=== PATIENT | female | born 1930 | race Caucasian/White ===

== ENCOUNTER 2018-09-27 18:28 | Inpatient (IN) | payer MEDICARE, BC ==
--- NOTE | 2018-09-27 19:22 | ED ---
General Adult HPI - General Chief complaint: Recheck/Abnormal Lab/Rx Stated complaint: Cellulitis Time Seen by Provider: 09/27/18 18:30 Source: patient, EMS, RN notes reviewed, old records reviewed Mode of arrival: EMS Limitations: no limitations - History of Present Illness Initial comments: 88-year-old female presents from [facility] for evaluation of right lower extremity erythema and swelling. Patient's symptoms have been ongoing for the past several weeks. She was seen at an outside hospital and had arterial study completed. Patient denies any complaints at the time my evaluation, no fever chills, no significant pain. Patient's family requested the patient be transported for second evaluation. - Related Data Home Medications Medication Instructions Recorded Confirmed Acetaminophen Tab [Tylenol] 1,000 mg PO DIRECTED PRN 11/04/16 11/04/16 Ascorbic Acid [Vitamin C] 500 mg PO DAILY 11/04/16 11/04/16 Aspirin EC [Ecotrin Low Dose] 81 mg PO DAILY 11/04/16 11/08/16 Atorvastatin [Lipitor] 40 mg PO DAILY 11/04/16 11/08/16 Dabigatran [Pradaxa] 75 mg PO BID 11/04/16 11/08/16 Digoxin [Lanoxin] 125 mcg PO DAILY 11/04/16 11/08/16 Donepezil HCl [Aricept] 5 mg PO HS 11/04/16 11/08/16 Furosemide [Lasix] 60 mg PO DAILY 11/04/16 11/08/16 Isosorbide Mononitrate ER [Imdur] 30 mg PO DAILY 11/04/16 11/08/16 Levothyroxine Sodium [Synthroid] 50 mcg PO DAILY 11/04/16 11/08/16 Losartan Potassium [Cozaar] 50 mg PO DAILY 11/04/16 11/08/16 Metoprolol Tartrate [Lopressor] 100 mg PO W/SUPPER 11/04/16 11/08/16 Metoprolol Tartrate [Lopressor] 150 mg PO QAM 11/04/16 11/08/16 [place]-3 Fatty Acids/Fish Oil [Fish 1 each PO DAILY 11/04/16 11/04/16 Oil 1,000 mg Softgel] Previous Rx's Medication Instructions Recorded Nitroglycerin Sl Tabs [Nitrostat] 0.4 mg SUBLINGUAL Q5M PRN #25 tab 11/09/16 metFORMIN HCL [Glucophage] 500 mg PO AC-SUPPER #0 11/09/16 Allergies Allergy/AdvReac Type Severity Reaction Status Date / Time Sulfa (Sulfonamide Allergy Unknown Unknown Verified 11/04/16 15:02 Antibiotics) Review of Systems ROS Statement: Those systems with pertinent positive or pertinent negative responses have been documented in the HPI. ROS Other: All systems not noted in ROS Statement are negative. Past Medical History Past Medical History: Diabetes Mellitus, Hyperlipidemia, Hypertension, Memory Impairment, Osteoarthritis (OA), Thyroid Disorder Additional Past Medical History / Comment(s): NEUROPATHY LEGS AND FEET, STATES SWELLING IN LEGS AND ANKLES WITH OCCASIONAL BLISTERS THAT SHE SCRATCHES AND THEY DRAIN., BACK AND KATHI SHOULDER PAIN. , INCONTINENT OF URINE-WEARS PADS., USES WALKER., STATES SHE LOST 150 LBS OVER THE LAST YEAR-WITHOUT ANY REASON STATES USUALLY NO APPETITE. SEE CARDIOLOGY H & P. History of Any Multi-Drug Resistant Organisms: None Reported Past Surgical History: Cholecystectomy, Coronary Bypass/CABG Additional Past Surgical History / Comment(s): sx to repair a torn tendon rt hip , lithotripsy,colonoscopy, cortisone inj rt shoulder Past Anesthesia/Blood Transfusion Reactions: No Reported Reaction Additional Past Anesthesia/Blood Transfusion Reaction / Comment(s): PT IS ADOPTED-UNKNOWN FAMILY HX. Type of Cardiac Device: Permanent Pacemaker Device Placement Date:: unk Past Psychological History: No Psychological Hx Reported Smoking Status: Former smoker Past Alcohol Use History: None Reported Past Drug Use History: None Reported - Past Family History Mother Family Medical History: Unable to Obtain Additional Family Medical History / Comment(s): PT ADOPTED. General Exam Limitations: no limitations General appearance: alert Head exam: Present: atraumatic, normocephalic Eye exam: Present: normal appearance, PERRL ENT exam: Present: normal exam Neck exam: Present: normal inspection. Absent: tenderness, meningismus Respiratory exam: Present: normal lung sounds bilaterally. Absent: respiratory distress, wheezes Cardiovascular Exam: Present: regular rate, normal rhythm GI/Abdominal exam: Present: soft. Absent: distended, tenderness Extremities exam: Present: normal capillary refill, pedal edema, other ( Swelling and erythema in the lower extremity, ankle to knee on the right. There is no crepitus, no fluctuance or drainable abscess. Distal signals present bilaterally) Neurological exam: Present: alert, CN II-XII intact. Absent: motor sensory deficit Skin exam: Present: warm, dry. Absent: cyanosis, diaphoretic Course Vital Signs 09/27/18 09/27/18 09/27/18 18:49 20:03 21:00 Temperature 98.9 F Pulse Rate 52 L 50 L 50 L Respiratory 18 17 18 Rate Blood Pressure 150/73 163/89 166/58 O2 Sat by Pulse 97 97 96 Oximetry Medical Decision Making - Medical Decision Making 88-year-old female with right lower extremity swelling. Exam consistent with cellulitis. X-ray obtained, negative for soft tissue gas. Ultrasound obtained negative for DVT. Arterial ultrasound reviewed, no abnormality. Patient started on IV anabiotic's. She was on oral antibiotics and has failed to improve. She will be admitted for further treatment of right lower extremity cellulitis. - Lab Data Result diagrams: 09/27/18 19:22 09/27/18 19:22 Lab Results 09/27/18 09/27/18 09/27/18 Range/Units 19:22 19:22 19:22 WBC 4.1 (3.8-10.6) k/uL RBC 3.47 L (3.80-5.40) m/uL Hgb 10.4 L (11.4-16.0) gm/dL Hct 32.4 L (34.0-46.0) % MCV 93.5 (80.0-100.0) fL MCH 30.1 (25.0-35.0) pg MCHC 32.1 (31.0-37.0) g/dL RDW 14.5 (11.5-15.5) % Plt Count 108 L (150-450) k/uL Neutrophils % 68 % Lymphocytes % 16 % Monocytes % 9 % Eosinophils % 3 % Basophils % 1 % Neutrophils # 2.8 (1.3-7.7) k/uL Lymphocytes # 0.7 L (1.0-4.8) k/uL Monocytes # 0.4 (0-1.0) k/uL Eosinophils # 0.1 (0-0.7) k/uL Basophils # 0.0 (0-0.2) k/uL Sodium 143 (137-145) mmol/L Potassium 5.0 (3.5-5.1) mmol/L Chloride 106 (98-107) mmol/L Carbon Dioxide 31 H (22-30) mmol/L Anion Gap 6 mmol/L BUN 49 H (7-17) mg/dL Creatinine 1.67 H (0.52-1.04) mg/dL Est GFR (CKD-EPI)AfAm 32 (>60 ml/min/1.73 sqM) Est GFR (CKD-EPI)NonAf 27 (>60 ml/min/1.73 sqM) Glucose 90 (74-99) mg/dL Plasma Lactic Acid Eugenio 1.0 (0.7-2.0) mmol/L Calcium 9.0 (8.4-10.2) mg/dL Total Bilirubin 0.5 (0.2-1.3) mg/dL AST 32 (14-36) U/L ALT 26 (9-52) U/L Alkaline Phosphatase 104 (38-126) U/L Total Protein 6.6 (6.3-8.2) g/dL Albumin 3.4 L (3.5-5.0) g/dL Disposition Clinical Impression: Cellulitis Disposition: ADMITTED IP TO THIS [facility] Condition: Stable Is patient prescribed a controlled substance at d/c from ED?: No Referrals: Nonstaff,Physician [Primary Care Provider] - 1-2 days Decision to Admit Reason: Admit from [facility] Decision Date: 09/27/18 Decision Time: 21:28
[2018-09-27 19:56] LABS: Basophils % (A) 1 %; Eosinophils # (A) 0.1 k/uL (0-0.7); Eosinophils % (A) 3 %; HCT 32.4 % (34.0-46.0); HGB 10.4 gm/dL (11.4-16.0); Lymphocytes # (A) 0.7 k/uL (1.0-4.8); Lymphocytes % (A) 16 %; MCH 30.1 pg (25.0-35.0); MCHC 32.1 g/dL (31.0-37.0); MCV 93.5 fL (80.0-100.0); Mean Platelet Volume 7.4; Monocytes # (A) 0.4 k/uL (0-1.0); Monocytes % (A) 9 %; Neutrophils # (A) 2.8 k/uL (1.3-7.7); Neutrophils % (A) 68 %; Platelet Count 108 k/uL (150-450); RBC 3.47 m/uL (3.80-5.40); RDW 14.5 % (11.5-15.5); WBC 4.1 k/uL (3.8-10.6)
[2018-09-27 20:04] LABS: Albumin 3.4 g/dL (3.5-5.0); Total Bilirubin 0.5 mg/dL (0.2-1.3); Total Protein 6.6 g/dL (6.3-8.2)
--- NOTE | 2018-09-27 20:14 | XR ---
EXAMINATION TYPE: XR tibia fibula RT DATE OF EXAM: 09/27/2018 COMPARISON: NONE HISTORY: Leg pain and swelling TECHNIQUE: 4 views FINDINGS: There are multiple surgical clips on the medial aspect of the knee. There is osteopenia. Th ere is vascular calcification. I see no acute fracture nor dislocation. There is hypertrophic osteoar thritis at the knee joint. There is severe narrowing of ankle joint space. There is soft tissue swell ing around the ankle joint. There is a large plantar and Achilles calcaneal spur formation. IMPRESSION: No acute abnormality of the right tibia and fibula.
--- NOTE | 2018-09-27 20:16 | US ---
EXAMINATION TYPE: US venous doppler duplex LE DATE OF EXAM: 09/27/2018 8:07 PM COMPARISON: NONE CLINICAL HISTORY: Pain. Edema SIDE PERFORMED: Bilateral TECHNIQUE: The lower extremity deep venous system is examined utilizing real time linear array sonog ambar with graded compression, doppler sonography and color-flow sonography. VESSELS IMAGED: External Iliac Vein (EIV) Common Femoral Vein Deep Femoral Vein Greater Saphenous Vein * Femoral Vein Popliteal Vein Small Saphenous Vein * Proximal Calf Veins (* superficial vessels) Right Leg: Negative for DVT Left Leg: Negative for DVT No evidence of DVT bilateral legs. IMPRESSION: No evidence of deep venous thrombosis in both legs.
[2018-09-27] MEDS ORDERED: VANCOMYCIN IV PER PHARMACY 1 EACH MISC MISCELLANE PRN (20:33)
[2018-09-27] MEDS ORDERED: VANCOMYCIN 1,250 MG in SODIUM CHLORIDE 0.9% 250 ML IVPB STA (20:38)
[2018-09-27] MEDS ORDERED: NALOXONE 0.4 MG/ML 1 ML VIAL IV PRN (21:25)
[2018-09-27] MEDS ORDERED: ACETAMINOPHEN TAB 325 MG TAB PO PRN (21:25)
[2018-09-27 23:19] VITALS: BMI 22.0
[2018-09-28 09:03] LABS: Calcium 8.8 mg/dL (8.4-10.2); Potassium 4.2 mmol/L (3.5-5.1)
[2018-09-28] MEDS ORDERED: VANCOMYCIN 1,250 MG in SODIUM CHLORIDE 0.9% 250 ML IVPB ONE (12:00)
[2018-09-28] MEDS ORDERED: NITROGLYCERIN SL TABS 0.4 MG TAB SUBLINGUAL PRN (13:06)
--- NOTE | 2018-09-28 13:59 | P.HPIM ---
History of Present Illness H&P Date: 09/28/18 Chief Complaint: Cellulitis and abnormal labs 88-year-old female presents [facility] for evaluation of right lower extremity erythema and swelling. Patient has dementia and is unable to provide any history so most of the history is obtained from patient records; Patient's symptoms have been ongoing for the past several weeks. She was seen at an outside hospital and had arterial study completed. Patient denies any complaints at the time my evaluation, no fever chills, no significant pain. Patient's family requested the patient be transported for second evaluation. Review of Systems ROS unobtainable: due to mental status Past Medical History Past Medical History: Diabetes Mellitus, Hyperlipidemia, Hypertension, Memory Impairment, Osteoarthritis (OA), Thyroid Disorder Additional Past Medical History / Comment(s): NEUROPATHY LEGS AND FEET, STATES SWELLING IN LEGS AND ANKLES WITH OCCASIONAL BLISTERS THAT SHE SCRATCHES AND THEY DRAIN., BACK AND KATHI SHOULDER PAIN. , INCONTINENT OF URINE-WEARS PADS., USES WALKER., STATES SHE LOST 150 LBS OVER THE LAST YEAR-WITHOUT ANY REASON STATES USUALLY NO APPETITE. SEE CARDIOLOGY H & P. History of Any Multi-Drug Resistant Organisms: None Reported Past Surgical History: Cholecystectomy, Coronary Bypass/CABG Additional Past Surgical History / Comment(s): sx to repair a torn tendon rt hip , lithotripsy,colonoscopy, cortisone inj rt shoulder Past Anesthesia/Blood Transfusion Reactions: No Reported Reaction Additional Past Anesthesia/Blood Transfusion Reaction / Comment(s): PT IS ADOPTED-UNKNOWN FAMILY HX. Type of Cardiac Device: Permanent Pacemaker Device Placement Date:: unk Past Psychological History: No Psychological Hx Reported Smoking Status: Former smoker Past Alcohol Use History: None Reported Additional Past Alcohol Use History / Comment(s): STATES SHE STARTED SMOKING AT 19 YRS OLD. UNSURE WHEN SHE QUIT -BUT STATES IT WAS A LONG TIME AGO. Past Drug Use History: None Reported - Past Family History Mother Family Medical History: Unable to Obtain Additional Family Medical History / Comment(s): PT ADOPTED. Medications and Allergies Home Medications Medication Instructions Recorded Confirmed Type Atorvastatin [Lipitor] 40 mg PO DAILY 11/04/16 09/28/18 History Digoxin [Lanoxin] 125 mcg PO DAILY 11/04/16 09/28/18 History Nitroglycerin Sl Tabs [Nitrostat] 0.4 mg SUBLINGUAL Q5M PRN #25 tab 11/09/1601/14 Rx metFORMIN HCL [Glucophage] 500 mg PO AC-SUPPER #0 11/09/16 09/28/18 Rx Allopurinol [Zyloprim] 100 mg PO DAILY 09/28/18 09/28/18 History Amiodarone [Cordarone] 100 mg PO BID 09/28/18 09/28/18 History Apixaban [Eliquis] 2.5 mg PO BID 09/28/18 09/28/18 History Cephalexin [Keflex] 500 mg PO Q12HR 09/28/18 09/28/18 History Ferrous Sulfate [Iron (65 MG 325 mg PO DAILY 09/28/18 09/28/18 History Elemental)] Furosemide [Lasix] 40 mg PO BID 09/28/18 09/28/18 History Metoprolol Tartrate [Lopressor] 25 mg PO Q12H 09/28/18 09/28/18 History Potassium Chloride ER [K-Dur 20] 20 meq PO BID 09/28/18 09/28/18 History Allergies Allergy/AdvReac Type Severity Reaction Status Date / Time Sulfa (Sulfonamide Allergy Unknown Unknown Verified 09/28/18 11:49 Antibiotics) Physical Exam Vitals: Vital Signs Temp Pulse Pulse Pulse Resp BP BP 09/28/18 12:16 98.0 F 54 L 16 129/50 09/28/18 11:46 97.1 F L 66 18 115/56 09/28/18 08:00 51 L 53 L 18 09/28/18 06:06 98 F 53 L 16 129/58 09/28/18 05:00 98.4 F 51 L 16 128/57 09/27/18 22:04 97.6 F 53 L 17 136/53 09/27/18 22:01 97.8 F 50 L 17 168/58 09/27/18 21:00 50 L 18 166/58 09/27/18 20:03 50 L 17 163/89 09/27/18 18:49 98.9 F 52 L 18 150/73 Pulse Ox 09/28/18 12:16 96 09/28/18 11:46 98 09/28/18 08:00 09/28/18 06:06 96 09/28/18 05:00 96 09/27/18 22:04 98 09/27/18 22:01 97 09/27/18 21:00 96 09/27/18 20:03 97 09/27/18 18:49 97 Intake and Output 09/27/18 09/28/18 09/28/18 22:59 06:59 14:59 Other: Voiding Method Diaper Toilet Incontinent # Voids 2 1 Weight 62 kg - Constitutional General appearance: Present: average body habitus, cooperative, no acute distress - EENT Eyes: Present: anicteric sclerae, EOMI, PERRLA, normal appearance ENT: Present: hearing grossly normal, normal oropharynx Ears: bilateral: normal - Neck Neck: Present: normal ROM. Absent: lymphadenopathy, rigidity, thyromegaly Carotids: negative: bruit present Thyroid: bilateral: normal size, negative: enlarged, nodule - Respiratory Respiratory: bilateral: CTA, negative: rales, rhonchi, wheezing - Cardiovascular Rhythm: regular Heart sounds: normal: S1, S2 Abnormal Heart Sounds: Absent: systolic murmur, diastolic murmur - Gastrointestinal General gastrointestinal: Present: normal bowel sounds, soft. Absent: distended , organomegaly, tenderness - Genitourinary Genitourinary Comment(s): deferred - Integumentary Integumentary: Present: normal turgor. Absent: jaundiced, rash, ulcer - Neurologic Neurologic: Present: CNII-XII intact. Absent: focal deficits - Musculoskeletal Musculoskeletal: Present: gait normal, strength equal bilaterally - Psychiatric Psychiatric: Present: A&O x's 3, appropriate affect, intact judgment & insight Results CBC & Chem 7: 09/27/18 19:22 09/28/18 08:26 Labs: Abnormal Lab Results - Last 24 Hours (Table) 09/27/18 09/27/18 09/28/18 Range/Units 19:22 19:22 08:26 RBC 3.47 L (3.80-5.40) m/uL Hgb 10.4 L (11.4-16.0) gm/dL Hct 32.4 L (34.0-46.0) % Plt Count 108 L (150-450) k/uL Lymphocytes # 0.7 L (1.0-4.8) k/uL Chloride 108 H (98-107) mmol/L Carbon Dioxide 31 H (22-30) mmol/L BUN 49 H 42 H (7-17) mg/dL Creatinine 1.67 H 1.52 H (0.52-1.04) mg/dL Glucose 131 H (74-99) mg/dL Albumin 3.4 L (3.5-5.0) g/dL Thrombosis Risk Factor Assmnt - Choose All That Apply Any of the Below Risk Factors Present?: Yes Each Factor Represents 1 point: Swollen legs (current) Other Risk Factors: Yes Each Risk Factor Represents 3 Points: Age 75 years or older Other congenital or acquired thrombophilia - If yes, enter type in comment: No Thrombosis Risk Factor Assessment Total Risk Factor Score: 4 Thrombosis Risk Factor Assessment Level: Moderate Risk Assessment and Plan Assessment: 1. Cellulitis right lower extremity; failing outpatient treatment - Patient is started on oral Keflex for outpatient treatment of cellulitis without any improvement - We will plan to start patient on IV ceftriaxone and IV vancomycin with pharmacy dosing service - We will obtain blood cultures and adjust medications and antibiotics accordingly - Venous Doppler right lower extremity is negative for DVT 2. Acute renal injury/dehydration - Patient's creatinine was 1.67 upon admission and has improved to 1.52; patient has a baseline creatinine of 1.14 - We will start patient on slow IV fluid hydration with half-normal saline running at 75 mL an hour - We will monitor strict MONSTER's, daily weights, renal function and electrolytes - We will avoid nephrotoxins and hypotension 3. Anemia; chronic - Patient is a baseline hemoglobin of 10.9; hemoglobin remained stable at baseline - We will continue with iron sulfate 325 mg daily - We will continue to monitor CBC closely and transfuse if hemoglobin is less than 7 4. Uncontrolled hypertension - We will restart patient on home medications metoprolol 25 mg every 12 hours - We will monitor blood pressure closely and adjust medications if needed 5. Diabetes mellitus; by history - We will monitor Accu-Cheks every before meals and at bedtime with insulin sliding scale if needed 7. Hyperlipidemia; stable on home dose of atorvastatin 40 mg daily at bedtime 8. Hypothyroidism; we'll restart patient on home dose of Synthroid 50 MCG daily 9. Chronic atrial fibrillation - Rate controlled on amiodarone 100 mg twice a day along with metoprolol 25 mg every 12 hours - Continue with anticoagulation with Eliquis 2.5 mg twice a day 10. DVT prophylaxis; systemic anticoagulation with Eliquis CODE STATUS ; full code Time with Patient: Greater than 30
[2018-09-28] MEDS: SODIUM CHLORIDE 0.45% 1,000 ML IV SCH (16:46)
[2018-09-28] MEDS: METOPROLOL TARTRATE 25 MG TAB PO SCH (16:46)
[2018-09-28 16:47] LABS: Glucose,Whole Blood 125 mg/dL (75-99)
[2018-09-28] MEDS: INSULIN ASPART 100 UNIT/ML 1 ML 10 ML VIAL SQ SCH ×2 (16:47→21:22)
[2018-09-28 21:01] LABS: Glucose,Whole Blood 157 mg/dL (75-99)
[2018-09-28] MEDS: AMIODARONE 100 MG TAB PO SCH (21:22)
[2018-09-28] MEDS: APIXABAN 2.5 MG TABLET PO SCH (21:22)
[2018-09-28 22:47] LABS: Hemoglobin A1C 5.7 % (4.0-6.0)
[2018-09-29] MEDS: METOPROLOL TARTRATE 25 MG TAB PO SCH ×2 (01:10→15:44)
[2018-09-29] MEDS: LEVOTHYROXINE 50 MCG TAB PO SCH (06:14)
[2018-09-29 06:47] LABS: Glucose,Whole Blood 84 mg/dL (75-99)
[2018-09-29] MEDS: SODIUM CHLORIDE 0.45% 1,000 ML IV SCH (07:27)
[2018-09-29 07:28] LABS: Calcium 8.7 mg/dL (8.4-10.2); Potassium 4.4 mmol/L (3.5-5.1)
[2018-09-29] MEDS: ALLOPURINOL 100 MG TAB PO SCH (07:29)
[2018-09-29] MEDS: ATORVASTATIN 40 MG TAB PO SCH (07:29)
[2018-09-29] MEDS: AMIODARONE 100 MG TAB PO SCH ×2 (07:29→21:48)
[2018-09-29] MEDS: APIXABAN 2.5 MG TABLET PO SCH ×2 (07:29→21:48)
[2018-09-29] MEDS: FERROUS SULFATE 325 MG TAB PO SCH (07:30)
[2018-09-29] MEDS: INSULIN ASPART 100 UNIT/ML 1 ML 10 ML VIAL SQ SCH ×4 (07:30→21:48)
[2018-09-29 07:33] LABS: Vancomycin,Random 13.9 ug/mL
[2018-09-29 07:51] LABS: Basophils % (A) 0 %; Eosinophils # (A) 0.1 k/uL (0-0.7); Eosinophils % (A) 3 %; HCT 28.5 % (34.0-46.0); HGB 9.2 gm/dL (11.4-16.0); Lymphocytes # (A) 0.9 k/uL (1.0-4.8); Lymphocytes % (A) 22 %; MCH 29.9 pg (25.0-35.0); MCHC 32.2 g/dL (31.0-37.0); MCV 92.9 fL (80.0-100.0); Mean Platelet Volume 7.9; Monocytes # (A) 0.3 k/uL (0-1.0); Monocytes % (A) 8 %; Neutrophils # (A) 2.7 k/uL (1.3-7.7); Neutrophils % (A) 65 %; RBC 3.06 m/uL (3.80-5.40); RDW 14.3 % (11.5-15.5); WBC 4.1 k/uL (3.8-10.6)
[2018-09-29 08:35] LABS: Platelet Count 84 k/uL (150-450)
[2018-09-29 11:22] LABS: Glucose,Whole Blood 149 mg/dL (75-99)
[2018-09-29] MEDS ORDERED: VANCOMYCIN 1,250 MG in SODIUM CHLORIDE 0.9% 250 ML IVPB ONE (12:00)
--- NOTE | 2018-09-29 15:25 | P.PN ---
Subjective Progress Note Date: 09/29/18 Principal diagnosis: Cellulitis failing outpatient treatment 09/29/2018 Patient is seen and evaluated for follow up on cellulitis; remains on IV antibiotics and is awake and alert; resting comfortably in bed; vital signs remained stable with a temperature of 97.8; blood pressure continues to fluctuate and is 174/70 at this time; labs are reviewed and white blood count and electrolytes remained stable; patient remains on IV antibiotics Objective - Vital Signs Vital signs: Vital Signs Temp 97.8 F 09/29/18 13:00 Pulse 56 L 09/29/18 13:00 Resp 18 09/29/18 13:00 BP 174/70 09/29/18 13:00 Pulse Ox 95 09/29/18 13:00 Intake & Output 09/28/18 09/29/18 09/29/18 18:59 06:59 18:59 Intake Total 1050 550 Balance 1050 550 Weight 62 kg Intake: Intake, IV Titration 850 190 Amount Sodium Chloride 0.45% 1, 600 90 000 ml @ 75 mls/hr IV . [id number] [facility] Rx#:[id number] Vancomycin 1,250 mg In 250 Sodium Chloride 0.9% 250 ml @ 125 mls/hr IVPB ONCE ONE Rx#:[id number] cefTRIAXone 1,000 mg In 100 Sodium Chloride 0.9% 50 ml @ 100 mls/hr IVPB HS [facility] Rx#:[id number] Oral 200 360 Other: Voiding Method Toilet Toilet Toilet # Voids 1 3 3 - Exam - Constitutional General appearance: Present: average body habitus, cooperative, no acute distress - EENT Eyes: Present: anicteric sclerae, EOMI, PERRLA, normal appearance - Neck Neck: Present: normal ROM. Absent: lymphadenopathy, rigidity, thyromegaly Carotids: negative: bruit present Thyroid: bilateral: normal size, negative: enlarged, nodule - Respiratory Respiratory: bilateral: CTA, negative: rales, rhonchi, wheezing - Cardiovascular Rhythm: regular Heart sounds: normal: S1, S2 Abnormal Heart Sounds: Absent: systolic murmur, diastolic murmur - Gastrointestinal General gastrointestinal: Present: normal bowel sounds, soft. Absent: distended , organomegaly, tenderness - Integumentary Integumentary: Present: normal turgor. Absent: jaundiced, rash, ulcer - Neurologic Neurologic: Present: CNII-XII intact. Absent: focal deficits - Musculoskeletal Musculoskeletal: Present: gait normal, strength equal bilaterally - Labs CBC & Chem 7: 09/29/18 06:41 09/29/18 06:41 Labs: Abnormal Lab Results - Last 24 Hours (Table) 09/28/18 09/28/18 09/29/18 Range/Units 16:46 21:00 06:41 RBC (3.80-5.40) m/uL Hgb (11.4-16.0) gm/dL Hct (34.0-46.0) % Plt Count (150-450) k/uL Lymphocytes # (1.0-4.8) k/uL BUN 38 H (7-17) mg/dL Creatinine 1.45 H (0.52-1.04) mg/dL POC Glucose (mg/dL) 125 H 157 H (75-99) mg/dL 09/29/18 09/29/18 Range/Units 06:41 11:20 RBC 3.06 L (3.80-5.40) m/uL Hgb 9.2 L (11.4-16.0) gm/dL Hct 28.5 L (34.0-46.0) % Plt Count 84 L (150-450) k/uL Lymphocytes # 0.9 L (1.0-4.8) k/uL BUN (7-17) mg/dL Creatinine (0.52-1.04) mg/dL POC Glucose (mg/dL) 149 H (75-99) mg/dL Microbiology - Last 24 Hours (Table) 09/27/18 19:22 Blood Culture - Preliminary Blood No Growth after 24 hours Assessment and Plan Assessment: 1. Cellulitis right lower extremity; failing outpatient treatment - Patient is started on oral Keflex for outpatient treatment of cellulitis without any improvement - We will plan to start patient on IV ceftriaxone and IV vancomycin with pharmacy dosing service - We will obtain blood cultures and adjust medications and antibiotics accordingly - Venous Doppler right lower extremity is negative for DVT 2. Acute renal injury/dehydration - Patient's creatinine was 1.67 upon admission and has improved to 1.52; patient has a baseline creatinine of 1.14 - We will start patient on slow IV fluid hydration with half-normal saline running at 75 mL an hour - We will monitor strict MONSTER's, daily weights, renal function and electrolytes - We will avoid nephrotoxins and hypotension 3. Anemia; chronic - Patient is a baseline hemoglobin of 10.9; hemoglobin remained stable at baseline - We will continue with iron sulfate 325 mg daily - We will continue to monitor CBC closely and transfuse if hemoglobin is less than 7 4. Uncontrolled hypertension - We will restart patient on home medications metoprolol 25 mg every 12 hours - We will monitor blood pressure closely and adjust medications if needed 5. Diabetes mellitus; by history - We will monitor Accu-Cheks every before meals and at bedtime with insulin sliding scale if needed 7. Hyperlipidemia; stable on home dose of atorvastatin 40 mg daily at bedtime 8. Hypothyroidism; we'll restart patient on home dose of Synthroid 50 MCG daily 9. Chronic atrial fibrillation - Rate controlled on amiodarone 100 mg twice a day along with metoprolol 25 mg every 12 hours - Continue with anticoagulation with Eliquis 2.5 mg twice a day 10. DVT prophylaxis; systemic anticoagulation with Eliquis CODE STATUS ; full code Time with Patient: Greater than 30
[2018-09-29] MEDS ORDERED: LIDOCAINE 1% (PF) 10MG/ML VIAL MISCELLANE PRN (17:00)
[2018-09-29 17:39] LABS: Glucose,Whole Blood 146 mg/dL (75-99)
[2018-09-29] MEDS ORDERED: cefTRIAXone 1,000 MG VIAL (IM USE) IM SCH (18:00)
[2018-09-29] MEDS: cefTRIAXone 1,000 MG VIAL (IM USE) IM SCH (18:14)
[2018-09-29 21:16] LABS: Glucose,Whole Blood 152 mg/dL (75-99)
[2018-09-30] MEDS: METOPROLOL TARTRATE 25 MG TAB PO SCH ×3 (00:16→20:48)
[2018-09-30 04:46] VITALS: RESP 16
[2018-09-30] MEDS: LEVOTHYROXINE 50 MCG TAB PO SCH (05:59)
[2018-09-30 06:57] LABS: Glucose,Whole Blood 94 mg/dL (75-99)
[2018-09-30] MEDS: INSULIN ASPART 100 UNIT/ML 1 ML 10 ML VIAL SQ SCH ×4 (07:12→20:36)
[2018-09-30] MEDS: ATORVASTATIN 40 MG TAB PO SCH (07:12)
[2018-09-30] MEDS: AMIODARONE 100 MG TAB PO SCH ×2 (07:12→20:48)
[2018-09-30] MEDS: ALLOPURINOL 100 MG TAB PO SCH (07:13)
[2018-09-30] MEDS: FERROUS SULFATE 325 MG TAB PO SCH (07:13)
[2018-09-30] MEDS: APIXABAN 2.5 MG TABLET PO SCH ×2 (07:13→20:48)
[2018-09-30 07:48] LABS: Basophils % (A) 0 %; Eosinophils # (A) 0.1 k/uL (0-0.7); Eosinophils % (A) 3 %; HCT 27.6 % (34.0-46.0); Hypochromasia Slight; Lymphocytes # (A) 0.8 k/uL (1.0-4.8); Lymphocytes % (A) 19 %; MCHC 32.8 g/dL (31.0-37.0); MCV 94.6 fL (80.0-100.0); Mean Platelet Volume 7.9; Monocytes # (A) 0.4 k/uL (0-1.0); Monocytes % (A) 9 %; Neutrophils # (A) 2.8 k/uL (1.3-7.7); Neutrophils % (A) 67 %; RBC 2.92 m/uL (3.80-5.40); RDW 14.6 % (11.5-15.5); WBC 4.2 k/uL (3.8-10.6)
[2018-09-30 07:59] LABS: Platelet Count 84 k/uL (150-450)
[2018-09-30 08:02] LABS: Calcium 8.5 mg/dL (8.4-10.2); Potassium 4.2 mmol/L (3.5-5.1)
[2018-09-30 11:23] LABS: Glucose,Whole Blood 86 mg/dL (75-99)
--- NOTE | 2018-09-30 14:37 | P.PN ---
Subjective Progress Note Date: 09/30/18 Principal diagnosis: Cellulitis failing outpatient treatment 09/29/2018 Patient is seen and evaluated for follow up on cellulitis; remains on IV antibiotics and is awake and alert; resting comfortably in bed; vital signs remained stable with a temperature of 97.8; blood pressure continues to fluctuate and is 174/70 at this time; labs are reviewed and white blood count and electrolytes remained stable; patient remains on IV antibiotics 09/30/2018 Patient is seen in follow-up at bedside; IV access was lost yesterday and patient's antibiotics were switched to IM Rocephin; patient seems to be tolerating it well; patient does shows slow clinical improvement in cellulitis; I will continue with daily IM Rocephin and add oral Levaquin 500 mg daily; patient's labs are reviewed and white blood count is stable at 4.2; hemoglobin remains stable between 9-9.2; that is slow improvement in renal function with the urine down to 32 with a creatinine of 1.28 We plan to follow patient clinically and possibly discharge within next 24-48 hours if continues to show clinical improvement; patient will need a PICC or central line if shows clinical deterioration with IM Rocephin Objective - Vital Signs Vital signs: Vital Signs Temp 97.6 F 09/30/18 13:00 Pulse 50 L 09/30/18 13:00 Resp 16 09/30/18 13:00 BP 142/63 09/30/18 13:00 Pulse Ox 98 09/30/18 13:00 Intake & Output 09/29/18 09/30/18 09/30/18 19:59 06:59 18:59 Intake Total 850 Balance 850 Weight Intake: Intake, IV Titration Amount Sodium Chloride 0.45% 1, 000 ml @ 75 mls/hr IV . [id number] [facility] Rx#:[id number] cefTRIAXone 1,000 mg In Sodium Chloride 0.9% 50 ml @ 100 mls/hr IVPB HS SAM Rx#:[id number] Oral 850 Other: Voiding Method # Voids 3 - Exam - Constitutional General appearance: Present: average body habitus, cooperative, no acute distress - EENT Eyes: Present: anicteric sclerae, EOMI, PERRLA, normal appearance - Neck Neck: Present: normal ROM. Absent: lymphadenopathy, rigidity, thyromegaly Carotids: negative: bruit present Thyroid: bilateral: normal size, negative: enlarged, nodule - Respiratory Respiratory: bilateral: CTA, negative: rales, rhonchi, wheezing - Cardiovascular Rhythm: regular Heart sounds: normal: S1, S2 Abnormal Heart Sounds: Absent: systolic murmur, diastolic murmur - Gastrointestinal General gastrointestinal: Present: normal bowel sounds, soft. Absent: distended , organomegaly, tenderness - Integumentary Integumentary: Present: normal turgor. Absent: jaundiced, rash, ulcer - Neurologic Neurologic: Present: CNII-XII intact. Absent: focal deficits - Musculoskeletal Musculoskeletal: Present: gait normal, strength equal bilaterally - Labs CBC & Chem 7: 09/30/18 06:21 09/30/18 06:21 Labs: Abnormal Lab Results - Last 24 Hours (Table) 09/29/18 09/29/18 09/30/18 Range/Units 17:37 21:15 06:21 RBC 2.92 L (3.80-5.40) m/uL Hgb 9.0 L (11.4-16.0) gm/dL Hct 27.6 L (34.0-46.0) % Plt Count 84 L (150-450) k/uL Lymphocytes # 0.8 L (1.0-4.8) k/uL Chloride (98-107) mmol/L BUN (7-17) mg/dL Creatinine (0.52-1.04) mg/dL POC Glucose (mg/dL) 146 H 152 H (75-99) mg/dL 09/30/18 Range/Units 06:21 RBC (3.80-5.40) m/uL Hgb (11.4-16.0) gm/dL Hct (34.0-46.0) % Plt Count (150-450) k/uL Lymphocytes # (1.0-4.8) k/uL Chloride 109 H (98-107) mmol/L BUN 32 H (7-17) mg/dL Creatinine 1.28 H (0.52-1.04) mg/dL POC Glucose (mg/dL) (75-99) mg/dL Microbiology - Last 24 Hours (Table) 09/27/18 19:22 Blood Culture Gram Stain - Preliminary Blood 09/27/18 19:22 Blood Culture - Final Blood Assessment and Plan Assessment: 1. Cellulitis right lower extremity; failing outpatient treatment - Patient is started on oral Keflex for outpatient treatment of cellulitis without any improvement - We will plan to start patient on IV ceftriaxone and IV vancomycin with pharmacy dosing service - We will obtain blood cultures and adjust medications and antibiotics accordingly - Venous Doppler right lower extremity is negative for DVT 2. Acute renal injury/dehydration - Patient's creatinine was 1.67 upon admission and has improved to 1.52; patient has a baseline creatinine of 1.14 - We will start patient on slow IV fluid hydration with half-normal saline running at 75 mL an hour - We will monitor strict MONSTER's, daily weights, renal function and electrolytes - We will avoid nephrotoxins and hypotension 3. Anemia; chronic - Patient is a baseline hemoglobin of 10.9; hemoglobin remained stable at baseline - We will continue with iron sulfate 325 mg daily - We will continue to monitor CBC closely and transfuse if hemoglobin is less than 7 4. Uncontrolled hypertension - We will restart patient on home medications metoprolol 25 mg every 12 hours - We will monitor blood pressure closely and adjust medications if needed 5. Diabetes mellitus; by history - We will monitor Accu-Cheks every before meals and at bedtime with insulin sliding scale if needed 7. Hyperlipidemia; stable on home dose of atorvastatin 40 mg daily at bedtime 8. Hypothyroidism; we'll restart patient on home dose of Synthroid 50 MCG daily 9. Chronic atrial fibrillation - Rate controlled on amiodarone 100 mg twice a day along with metoprolol 25 mg every 12 hours - Continue with anticoagulation with Eliquis 2.5 mg twice a day 10. DVT prophylaxis; systemic anticoagulation with Eliquis CODE STATUS ; full code Time with Patient: Greater than 30
[2018-09-30] MEDS: cefTRIAXone 1,000 MG VIAL (IM USE) IM SCH (15:32)
[2018-09-30 17:14] LABS: Glucose,Whole Blood 91 mg/dL (75-99)
[2018-09-30 20:20] LABS: Glucose,Whole Blood 110 mg/dL (75-99)
[2018-10-01 05:04] VITALS: PULSE 52
[2018-10-01] MEDS: LEVOTHYROXINE 50 MCG TAB PO SCH (06:02)
[2018-10-01 07:09] LABS: Glucose,Whole Blood 87 mg/dL (75-99)
[2018-10-01] MEDS: INSULIN ASPART 100 UNIT/ML 1 ML 10 ML VIAL SQ SCH ×2 (07:56→13:00)
[2018-10-01 08:54] LABS: Basophils % (A) 1 %; Eosinophils # (A) 0.1 k/uL (0-0.7); Eosinophils % (A) 4 %; HCT 27.6 % (34.0-46.0); HGB 8.9 gm/dL (11.4-16.0); Hypochromasia Slight; Lymphocytes # (A) 0.9 k/uL (1.0-4.8); Lymphocytes % (A) 22 %; MCHC 32.4 g/dL (31.0-37.0); MCV 92.6 fL (80.0-100.0); Monocytes # (A) 0.3 k/uL (0-1.0); Monocytes % (A) 8 %; Neutrophils # (A) 2.5 k/uL (1.3-7.7); Neutrophils % (A) 64 %; RBC 2.98 m/uL (3.80-5.40); RDW 14.4 % (11.5-15.5); WBC 3.9 k/uL (3.8-10.6)
[2018-10-01 08:56] LABS: Platelet Count 85 k/uL (150-450)
[2018-10-01 09:07] LABS: Calcium 8.7 mg/dL (8.4-10.2); Potassium 4.1 mmol/L (3.5-5.1)
[2018-10-01] MEDS: FERROUS SULFATE 325 MG TAB PO SCH (09:52)
[2018-10-01] MEDS: ALLOPURINOL 100 MG TAB PO SCH (09:52)
[2018-10-01] MEDS: AMIODARONE 100 MG TAB PO SCH (09:52)
[2018-10-01] MEDS: METOPROLOL TARTRATE 25 MG TAB PO SCH (09:52)
[2018-10-01] MEDS: ATORVASTATIN 40 MG TAB PO SCH (09:52)
[2018-10-01] MEDS: APIXABAN 2.5 MG TABLET PO SCH (09:52)
[2018-10-01 11:35] LABS: Glucose,Whole Blood 109 mg/dL (75-99)
[2018-10-01 12:24] VITALS: BP 157/67; TEMP 97.7
--- NOTE | 2018-10-01 15:00 | P.DS ---
Providers Date of admission: 09/27/18 21:28 Expected date of discharge: 10/02/18 Attending physician: MD Dr. Myra Amos Primary care physician: Physician Nonstaff Hospital Course: 1. Cellulitis right lower extremity; failing outpatient treatment - Venous Doppler right lower extremity is negative for DVT 2. Acute renal injury/dehydration - Patient's creatinine was 1.67 upon admission, improved .baseline creatinine of 1.14 - avoid nephrotoxins and hypotension 3. Anemia; chronic 4. Hypertension 5. Diabetes mellitus 7. Hyperlipidemia; stable on home dose of atorvastatin 40 mg daily at bedtime 8. Chronic atrial fibrillation - Rate controlled on amiodarone 100 mg twice a day along with metoprolol 25 mg every 12 hours - Continue with anticoagulation with Eliquis 2.5 mg twice a day Hospital course: This is an 88-year-old female admitted with cellulitis, acute renal failure, dehydration, hypertension and multiple other medical issues. Maintained on gentle IV fluid hydration, IV antibiotics. Digoxin and metformin discontinued secondary to renal function. Significant clinical improvement. Patient is being discharged to [facility] in a stable condition with guarded prognosis. - Exam - Constitutional General appearance: Present: average body habitus, cooperative, no acute distress - EENT Respiratory: bilateral: CTA, negative: rales, rhonchi - Cardiovascular Rhythm: regular Heart sounds: normal: S1, S2 Abnormal Heart Sounds: Absent: systolic murmur, diastolic murmur - Gastrointestinal General gastrointestinal: Present: normal bowel sounds, soft. Absent: distended , organomegaly, tenderness - Integumentary - Neurologic Neurologic: Present: CNII-XII intact. Absent: focal deficits The impression and plan of care has been dictated as directed. : I performed a history and examination of this patient, discussed the same with the dictator. I agree with the dictator's note ,documented as a scribe. Any additional findings or plans will be noted. Time taken: 35 minutes Patient Condition at Discharge: Stable Plan - Discharge Summary Discharge Rx Participant: No New Discharge Prescriptions: New Cephalexin [Keflex] 500 mg PO Q8HR #15 cap INSULIN LISPRO (HumaLOG) [humaLOG] 0 unit SQ ACHS #1 vial Acetaminophen Tab [Tylenol] 650 mg PO Q6HR PRN tab PRN Reason: Mild Pain Or Fever > 100.5 Levothyroxine Sodium [Synthroid] 50 mcg PO DAILY@0630 tab Continue Atorvastatin [Lipitor] 40 mg PO DAILY Nitroglycerin Sl Tabs [Nitrostat] 0.4 mg SUBLINGUAL Q5M PRN #25 tab PRN Reason: Chest Pain Cephalexin [Keflex] 500 mg PO Q12HR Apixaban [Eliquis] 2.5 mg PO BID Furosemide [Lasix] 40 mg PO BID Amiodarone [Cordarone] 100 mg PO BID Allopurinol [Zyloprim] 100 mg PO DAILY Metoprolol Tartrate [Lopressor] 25 mg PO Q12H Potassium Chloride ER [K-Dur 20] 20 meq PO BID Ferrous Sulfate [Iron (65 MG Elemental)] 325 mg PO DAILY Discharge Medication List Atorvastatin [Lipitor] 40 mg PO DAILY 11/04/16 [History] Nitroglycerin Sl Tabs [Nitrostat] 0.4 mg SUBLINGUAL Q5M PRN #25 tab 11/09/16 [Rx ] Allopurinol [Zyloprim] 100 mg PO DAILY 09/28/18 [History] Amiodarone [Cordarone] 100 mg PO BID 09/28/18 [History] Apixaban [Eliquis] 2.5 mg PO BID 09/28/18 [History] Cephalexin [Keflex] 500 mg PO Q12HR 09/28/18 [History] Ferrous Sulfate [Iron (65 MG Elemental)] 325 mg PO DAILY 09/28/18 [History] Furosemide [Lasix] 40 mg PO BID 09/28/18 [History] Metoprolol Tartrate [Lopressor] 25 mg PO Q12H 09/28/18 [History] Potassium Chloride ER [K-Dur 20] 20 meq PO BID 09/28/18 [History] Acetaminophen Tab [Tylenol] 650 mg PO Q6HR PRN tab 10/01/18 [Rx] Cephalexin [Keflex] 500 mg PO Q8HR #15 cap 10/01/18 [Rx] INSULIN LISPRO (HumaLOG) [humaLOG] 0 unit SQ ACHS #1 vial 10/01/18 [Rx] Levothyroxine Sodium [Synthroid] 50 mcg PO DAILY@0630 tab 10/01/18 [Rx] Follow up Appointment(s)/Referral(s): Lj Nolen MD [REFERRING] - 3 Days (At subacute rehab) Activity/Diet/Wound Care/Special Instructions: [facility] CBC,bmp in 3 days
== END 2018-10-01 16:30 | DRG 603 ==
LOC: EC 18:28 → 3NMEDONC 21:28
PROVIDERS: ADMIT Internal Medicine; ATTEND Internal Medicine
DX: L03.115 Cellulitis of right lower limb (principal); N17.9 Acute kidney failure, unspecified; E78.5 Hyperlipidemia, unspecified; I10 Essential (primary) hypertension; R41.3 Other amnesia; M19.90 Unspecified osteoarthritis, unspecified site; E11.40 Type 2 diabetes mellitus with diabetic neuropathy, unspecified; R32 Unspecified urinary incontinence; E86.0 Dehydration; D64.9 Anemia, unspecified; E03.9 Hypothyroidism, unspecified; I48.2 Chronic atrial fibrillation; Z79.84 Long term (current) use of oral hypoglycemic drugs; Z79.02 Long term (current) use of antithrombotics/antiplatelets; Z79.82 Long term (current) use of aspirin; Z79.890 Hormone replacement therapy; Z79.899 Other long term (current) drug therapy; Z90.49 Acquired absence of other specified parts of digestive tract; Z95.1 Presence of aortocoronary bypass graft; Z87.891 Personal history of nicotine dependence; Z88.2 Allergy status to sulfonamides; Z79.01 Long term (current) use of anticoagulants
CPT/HCPCS: 36415; 80048; 80053; 80202; 83036; 83605; 85025; 87040; 93970; 96365; 96367; 99285

== ENCOUNTER 2020-09-25 00:37 | Inpatient (IN) | payer MEDICARE, BC ==
--- NOTE | 2020-09-25 00:44 | ED ---
SOB HPI - General Stated Complaint: FLORI Time Seen by Provider: 09/25/20 00:43 Source: RN notes reviewed, old records reviewed Limitations: language barrier, altered mental status - History of Present Illness MD Complaint: shortness of breath, anxiety -: hour(s) Severity: moderate Severity scale (1-10): 4 Quality: other (no pain) Consistency: constant Improves With: nothing Worsens With: exertion Context: recent URI, choking/aspiration, anxiety, recent illness Associated Symptoms: cough, nausea/vomiting Treatments Prior to Arrival: none - Related Data Home Medications Medication Instructions Recorded Confirmed Atorvastatin [Lipitor] 40 mg PO HS 11/04/16 09/25/20 Apixaban [Eliquis] 2.5 mg PO BID 09/28/18 09/25/20 Ferrous Sulfate [Iron (65 MG 325 mg PO DAILY 09/28/18 09/25/20 Elemental)] Potassium Chloride ER [K-Dur 20] 20 meq PO DAILY 09/28/18 09/25/20 allopurinoL [Zyloprim] 100 mg PO DAILY 09/28/18 09/25/20 Digoxin [Digitek] 62.5 mcg PO DAILY 09/25/20 09/25/20 Furosemide [Lasix] 60 mg PO DAILY 09/25/20 09/25/20 Metoprolol Succinate [Toprol XL] 25 mg PO BID 09/25/20 09/25/20 metFORMIN HCL [Glucophage] 500 mg PO DAILY 09/25/20 09/25/20 Previous Rx's Medication Instructions Recorded Nitroglycerin Sl Tabs [Nitrostat] 0.4 mg SUBLINGUAL Q5M PRN #25 tab 11/09/16 Allergies Allergy/AdvReac Type Severity Reaction Status Date / Time Sulfa (Sulfonamide Allergy Unknown Unknown Verified 09/25/20 07:19 Antibiotics) Review of Systems ROS Statement: Those systems with pertinent positive or pertinent negative responses have been documented in the HPI. ROS Other: All systems not noted in ROS Statement are negative. Past Medical History Past Medical History: Diabetes Mellitus, Hyperlipidemia, Hypertension, Memory Impairment, Osteoarthritis (OA), Thyroid Disorder Additional Past Medical History / Comment(s): NEUROPATHY LEGS AND FEET, STATES SWELLING IN LEGS AND ANKLES WITH OCCASIONAL BLISTERS THAT SHE SCRATCHES AND THEY DRAIN., BACK AND KATHI SHOULDER PAIN. , INCONTINENT OF URINE-WEARS PADS., USES WALKER., STATES SHE LOST 150 LBS OVER THE LAST YEAR-WITHOUT ANY REASON STATES US UALLY NO APPETITE. SEE CARDIOLOGY H & P. History of Any Multi-Drug Resistant Organisms: None Reported Past Surgical History: Cholecystectomy, Coronary Bypass/CABG Additional Past Surgical History / Comment(s): sx to repair a torn tendon rt hip, lithotripsy,colonoscopy, cortisone inj rt shoulder Past Anesthesia/Blood Transfusion Reactions: No Reported Reaction Additional Past Anesthesia/Blood Transfusion Reaction / Comment(s): PT IS ADOPTED-UNKNOWN FAMILY HX. Type of Cardiac Device: Permanent Pacemaker Device Placement Date:: unk Past Psychological History: No Psychological Hx Reported Past Alcohol Use History: None Reported Additional Past Alcohol Use History / Comment(s): STATES SHE STARTED SMOKING AT 19 YRS OLD. UNSURE WHEN SHE QUIT -BUT STATES IT WAS A LONG TIME AGO. Past Drug Use History: None Reported - Past Family History Mother Family Medical History: Unable to Obtain Additional Family Medical History / Comment(s): PT ADOPTED. General Exam General appearance: alert, in no apparent distress, anxious, cachectic Head exam: Present: atraumatic, normocephalic, normal inspection Eye exam: Present: normal appearance, PERRL, EOMI. Absent: scleral icterus, conjunctival injection, periorbital swelling ENT exam: Present: normal exam, mucous membranes dry Neck exam: Present: normal inspection. Absent: tenderness, meningismus, lymphadenopathy Respiratory exam: Present: accessory muscle use, decreased breath sounds, prolonged expiratory. Absent: respiratory distress, wheezes, rales, rhonchi, stridor Cardiovascular Exam: Present: tachycardia, irregular rhythm, normal heart sounds. Absent: systolic murmur, diastolic murmur, rubs, gallop, clicks GI/Abdominal exam: Present: soft, normal bowel sounds. Absent: distended, tenderness, guarding, rebound, rigid Extremities exam: Present: normal inspection, full ROM, normal capillary refill. Absent: tenderness, pedal edema, joint swelling, calf tenderness Back exam: Present: normal inspection Neurological exam: Present: alert, oriented X3, CN II-XII intact Psychiatric exam: Present: normal affect, normal mood Skin exam: Present: warm, dry, intact, normal color. 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0-46.0) % MCV 95.9 (80.0-100.0) fL MCH 29.9 (25.0-35.0) pg MCHC 31.1 (31.0-37.0) g/dL RDW 16.8 H (11.5-15.5) % Plt Count 128 L (150-450) k/uL Neutrophils % 86 % Lymphocytes % 5 % Monocytes % 6 % Eosinophils % 1 % Basophils % 1 % Neutrophils # 6.4 (1.3-7.7) k/uL Lymphocytes # 0.4 L (1.0-4.8) k/uL Monocytes # 0.4 (0-1.0) k/uL Eosinophils # 0.1 (0-0.7) k/uL Basophils # 0.1 (0-0.2) k/uL Hypochromasia Marked Anisocytosis Slight PT 10.9 (9.0-12.0) sec INR 1.1 (<1.2) APTT 24.1 (22.0-30.0) sec Sodium 137 (137-145) mmol/L Potassium 5.2 H (3.5-5.1) mmol/L Chloride 105 (98-107) mmol/L Carbon Dioxide 25 (22-30) mmol/L Anion Gap 7 mmol/L BUN 71 H (7-17) mg/dL Creatinine 1.99 H (0.52-1.04) mg/dL Est GFR (CKD-EPI)AfAm 25 (>60 ml/min/1.73 sqM) Est GFR (CKD-EPI)NonAf 22 (>60 ml/min/1.73 sqM) Glucose 133 H (74-99) mg/dL Plasma Lactic Acid Eugenio (0.7-2.0) mmol/L Calcium 9.0 (8.4-10.2) mg/dL Phosphorus 4.7 H (2.5-4.5) mg/dL Magnesium 2.3 (1.6-2.3) mg/dL Total Bilirubin 0.7 (0.2-1.3) mg/dL AST 24 (14-36) U/L ALT 12 (4-34) U/L Alkaline Phosphatase 74 (38-126) U/L Creatine Kinase 53 (30-135) U/L Troponin I (0.000-0.034) ng/mL NT-Pro-B Natriuret Pep pg/mL Total Protein 6.7 (6.3-8.2) g/dL Albumin 3.5 (3.5-5.0) g/dL Urine Color Urine Appearance (Clear) Urine pH (5.0-8.0) Ur Specific [place] (1.001-1.035) Urine Protein (Negative) Urine Glucose (UA) (Negative) Urine Ketones (Negative) Urine Blood (Negative) Urine Nitrite (Negative) Urine Bilirubin (Negative) Urine Urobilinogen (<2.0) mg/dL Ur Leukocyte Esterase (Negative) Urine RBC (0-5) /hpf Urine WBC (0-5) /hpf Ur Squamous Epith Cells (0-4) /hpf Urine Bacteria (None) /hpf Hyaline Casts (0-2) /lpf Urine Mucus (None) /hpf Blood Type Blood Type Recheck Bld Type Recheck Status Antibody Screen Spec Expiration Date 09/25/20 09/25/20 09/25/20 Range/Units 01:18 01:18 01:18 WBC (3.8-10.6) k/uL RBC (3.80-5.40) m/uL Hgb (11.4-16.0) gm/dL Hct (34.0-46.0) % MCV (80.0-100.0) fL MCH (25.0-35.0) pg MCHC (31.0-37.0) g/dL RDW (11.5-15.5) % Plt Count (150-450) k/uL Neutrophils % % Lymphocytes % % Monocytes % % Eosinophils % % Basophils % % Neutrophils # (1.3-7.7) k/uL Lymphocytes # (1.0-4.8) k/uL Monocytes # (0-1.0) k/uL Eosinophils # (0-0.7) k/uL Basophils # (0-0.2) k/uL Hypochromasia Anisocytosis PT (9.0-12.0) sec INR (<1.2) APTT (22.0-30.0) sec Sodium (137-145) mmol/L Potassium (3.5-5.1) mmol/L Chloride (98-107) mmol/L Carbon Dioxide (22-30) mmol/L Anion Gap mmol/L BUN (7-17) mg/dL Creatinine (0.52-1.04) mg/dL Est GFR (CKD-EPI)AfAm (>60 ml/min/1.73 sqM) Est GFR (CKD-EPI)NonAf (>60 ml/min/1.73 sqM) Glucose (74-99) mg/dL Plasma Lactic Acid Eugenio 1.3 (0.7-2.0) mmol/L Calcium (8.4-10.2) mg/dL Phosphorus (2.5-4.5) mg/dL Magnesium (1.6-2.3) mg/dL Total Bilirubin (0.2-1.3) mg/dL AST (14-36) U/L ALT (4-34) U/L Alkaline Phosphatase (38-126) U/L Creatine Kinase (30-135) U/L Troponin I 0.035 H* (0.000-0.034) ng/mL NT-Pro-B Natriuret Pep 27034 pg/mL Total Protein (6.3-8.2) g/dL Albumin (3.5-5.0) g/dL Urine Color Urine Appearance (Clear) Urine pH (5.0-8.0) Ur Specific [place] (1.001-1.035) Urine Protein (Negative) Urine Glucose (UA) (Negative) Urine Ketones (Negative) Urine Blood (Negative) Urine Nitrite (Negative) Urine Bilirubin (Negative) Urine Urobilinogen (<2.0) mg/dL Ur Leukocyte Esterase (Negative) Urine RBC (0-5) /hpf Urine WBC (0-5) /hpf Ur Squamous Epith Cells (0-4) /hpf Urine Bacteria (None) /hpf Hyaline Casts (0-2) /lpf Urine Mucus (None) /hpf Blood Type Blood Type Recheck Bld Type Recheck Status Antibody Screen Spec Expiration Date 09/25/20 09/25/20 Range/Units 01:37 02:40 WBC (3.8-10.6) k/uL RBC (3.80-5.40) m/uL Hgb (11.4-16.0) gm/dL Hct (34.0-46.0) % MCV (80.0-100.0) fL MCH (25.0-35.0) pg MCHC (31.0-37.0) g/dL RDW (11.5-15.5) % Plt Count (150-450) k/uL Neutrophils % % Lymphocytes % % Monocytes % % Eosinophils % % Basophils % % Neutrophils # (1.3-7.7) k/uL Lymphocytes # (1.0-4.8) k/uL Monocytes # (0-1.0) k/uL Eosinophils # (0-0.7) k/uL Basophils # (0-0.2) k/uL Hypochromasia Anisocytosis PT (9.0-12.0) sec INR (<1.2) APTT (22.0-30.0) sec Sodium (137-145) mmol/L Potassium (3.5-5.1) mmol/L Chloride (98-107) mmol/L Carbon Dioxide (22-30) mmol/L Anion Gap mmol/L BUN (7-17) mg/dL Creatinine (0.52-1.04) mg/dL Est GFR (CKD-EPI)AfAm (>60 ml/min/1.73 sqM) Est GFR (CKD-EPI)NonAf (>60 ml/min/1.73 sqM) Glucose (74-99) mg/dL Plasma Lactic Acid Eugenio (0.7-2.0) mmol/L Calcium (8.4-10.2) mg/dL Phosphorus (2.5-4.5) mg/dL Magnesium (1.6-2.3) mg/dL Total Bilirubin (0.2-1.3) mg/dL AST (14-36) U/L ALT (4-34) U/L Alkaline Phosphatase (38-126) U/L Creatine Kinase (30-135) U/L Troponin I (0.000-0.034) ng/mL NT-Pro-B Natriuret Pep pg/mL Total Protein (6.3-8.2) g/dL Albumin (3.5-5.0) g/dL Urine Color Light Yellow Urine Appearance Clear (Clear) Urine pH 5.0 (5.0-8.0) Ur Specific [place] 1.011 (1.001-1.035) Urine Protein Negative (Negative) Urine Glucose (UA) Negative (Negative) Urine Ketones Negative (Negative) Urine Blood Negative (Negative) Urine Nitrite Negative (Negative) Urine Bilirubin Negative (Negative) Urine Urobilinogen <2.0 (<2.0) mg/dL Ur Leukocyte Esterase Trace H (Negative) Urine RBC <1 (0-5) /hpf Urine WBC 1 (0-5) /hpf Ur Squamous Epith Cells 1 (0-4) /hpf Urine Bacteria Rare H (None) /hpf Hyaline Casts 15 H (0-2) /lpf Urine Mucus Rare H (None) /hpf Blood Type A Positive Blood Type Recheck A Pos Bld Type Recheck Status No Antibody Screen NEGATIVE Spec Expiration Date 09/28/20207 - EKG Data -: EKG Interpreted by Me (EKG is paced 116. 166 QRS 110 QTc 411) Disposition Clinical Impression: Atrial fibrillation, History of dementia, Weakness, Dehydration, CHF (congestive heart failure), ARF (acute renal failure) Disposition: ADMITTED IP TO THIS HOSP Condition: Fair
[2020-09-25] MEDS ORDERED: SODIUM CHLORIDE 0.9% 1,000 ML IV STA ×2 (00:57)
[2020-09-25] MEDS ORDERED: SODIUM CHLORIDE 0.9% 500 ML 500 ML IV STA ×2 (00:57→02:43)
[2020-09-25 01:29] LABS: Anisocytosis Slight; Basophils # (A) 0.1 k/uL (0-0.2); Basophils % (A) 1 %; Eosinophils # (A) 0.1 k/uL (0-0.7); Eosinophils % (A) 1 %; HCT 34.8 % (34.0-46.0); HGB 10.8 gm/dL (11.4-16.0); Hypochromasia Marked; Lymphocytes # (A) 0.4 k/uL (1.0-4.8); Lymphocytes % (A) 5 %; MCH 29.9 pg (25.0-35.0); MCHC 31.1 g/dL (31.0-37.0); MCV 95.9 fL (80.0-100.0); Mean Platelet Volume 9.9; Monocytes # (A) 0.4 k/uL (0-1.0); Monocytes % (A) 6 %; Neutrophils # (A) 6.4 k/uL (1.3-7.7); Neutrophils % (A) 86 %; Platelet Count 128 k/uL (150-450); RBC 3.63 m/uL (3.80-5.40); RDW 16.8 % (11.5-15.5); WBC 7.4 k/uL (3.8-10.6)
[2020-09-25] MEDS ORDERED: METOPROLOL TARTRATE 5 MG/5 ML VIAL IVP STA (01:29)
[2020-09-25 01:43] LABS: Albumin 3.5 g/dL (3.5-5.0); Magnesium 2.3 mg/dL (1.6-2.3); Phosphorus 4.7 mg/dL (2.5-4.5); Potassium 5.2 mmol/L (3.5-5.1); Total Bilirubin 0.7 mg/dL (0.2-1.3); Total Protein 6.7 g/dL (6.3-8.2)
[2020-09-25 01:51] LABS: INR 1.1 (<1.2); Partial Thromboplastin Time 24.1 sec (22.0-30.0); Prothrombin Time 10.9 sec (9.0-12.0)
--- NOTE | 2020-09-25 01:52 | XR ---
EXAM: XR Chest, 2 Views CLINICAL HISTORY: Reason for examination: weakness TECHNIQUE: Frontal and lateral views of the chest. COMPARISON: None available FINDINGS: Lungs: Elevated right hemidiaphragm with hazy opacity in the medial right base. Diffuse perihilar reticular opacities. Pleural space: No pleural effusion. No pneumothorax. Heart: Mild cardiomegaly. Left chest AICD with leads overlying the right atrium and right ventricular apex. Mediastinum: Median sternotomy wires in place. Bones/joints: Unremarkable. IMPRESSION: 1. Cardiomegaly with mild interstitial pulmonary edema. 2. Elevated right hemidiaphragm with right base hazy opacity which may be due to atelectasis and/or pneumonia.
--- NOTE | 2020-09-25 02:27 | CT ---
EXAM: CT Chest Without Intravenous Contrast CLINICAL HISTORY: ITS.REASON CT Reason: hernia TECHNIQUE: Axial computed tomography images of the chest without intravenous contrast. CTDI is 6.385 mGy and DLP is 427.2 mGy-cm. This CT exam was performed using one or more of the following dose reduction techniques: automated exposure control, adjustment of the mA and/or kV according to patient size, and/or use of iterative reconstruction technique. COMPARISON: None available FINDINGS: Lungs: Right base atelectasis. No mass. No consolidation. Pleural space: Small left, trace right pleural effusion. Heart: Aortic valve prosthesis in place. Median sternotomy wires in place. The chest pacer with leads extending into the right atrium and right ventricular apex. No cardiomegaly. No significant pericardial effusion. Bones/joints: No acute fracture. No dislocation. Soft tissues: Unremarkable. Vasculature: Unremarkable. No thoracic aortic aneurysm. Lymph nodes: Unremarkable. No enlarged lymph nodes. IMPRESSION: 1. Small left and trace right pleural effusion. 2. Right base atelectasis. EXAM: CT Abdomen and Pelvis Without Intravenous Contrast CLINICAL HISTORY: ITS.REASON CT Reason: hernia TECHNIQUE: Axial computed tomography images of the abdomen and pelvis without intravenous contrast. CTDI is 6.385 mGy and DLP is 427.2 mGy-cm. This CT exam was performed using one or more of the following dose reduction techniques: automated exposure control, adjustment of the mA and/or kV according to patient size, and/or use of iterative reconstruction technique. COMPARISON: None available FINDINGS: Lung bases: Unremarkable. No mass. No consolidation. ABDOMEN: Liver: Unremarkable. Gallbladder and bile ducts: Surgically absent. No ductal dilation. Pancreas: Unremarkable. No ductal dilation. Spleen: Unremarkable. No splenomegaly. Adrenals: Unremarkable. No mass. Kidneys and ureters: Unremarkable. No obstructing stones. No hydronephrosis. Stomach and bowel: Unremarkable. No obstruction. No mucosal thickening. PELVIS: Appendix: No findings to suggest acute appendicitis. Bladder: Unremarkable. No stones. Reproductive: Unremarkable as visualized. ABDOMEN and PELVIS: Intraperitoneal space: Unremarkable. No free air. Small perihepatic, perisplenic, and pelvic ascites. Bones/joints: No acute fracture. No dislocation. Just throughout the thoracolumbar spine, right greater than left hips, and bilateral first carpometacarpal joints. Soft tissues: Surgical clips along the right upper quadrant. Diffuse anasarca. Vasculature: Moderate vascular calcifications of the abdominal aorta and visceral branches.. No abdominal aortic aneurysm. Lymph nodes: Unremarkable. No enlarged lymph nodes. IMPRESSION: 1. No acute intra-abdominal process. No abdominal wall hernia. 2. Small intra-abdominal ascites.
[2020-09-25 03:16] LABS: Appearance,Urine Clear (Clear); Bacteria,Urine Rare /hpf; Bilirubin,Urine Negative (Negative); Blood,Urine Negative (Negative); Color,Urine Light Yellow; Glucose,Urine (UA) Negative (Negative); Hyaline Casts,Urine 15 /lpf (0-2); Ketones,Urine Negative (Negative); Leukocyte Esterase,Urine Trace (Negative); Mucus,Urine Rare /hpf; Nitrite,Urine Negative (Negative); Protein,Urine Negative (Negative); RBC,Urine <1 /hpf (0-5); Specific Gravity,Urine 1.011 (1.001-1.035); Squamous Epithelial Cell,Urine 1 /hpf (0-4); Urobilinogen,Urine <2.0 mg/dL (<2.0); WBC,Urine 1 /hpf (0-5)
[2020-09-25] MEDS ORDERED: FUROSEMIDE 10 MG/ML 4 ML VIAL IV SCH (05:00)
[2020-09-25] MEDS ORDERED: METOPROLOL TARTRATE 25 MG TAB PO SCH (09:00)
[2020-09-25] MEDS ORDERED: NITROGLYCERIN SL TABS 0.4 MG TAB SUBLINGUAL PRN (09:17)
[2020-09-25] MEDS ORDERED: metFORMIN 500 MG TAB PO SCH (09:30)
[2020-09-25] MEDS ORDERED: FUROSEMIDE 20 MG TAB PO SCH (09:30)
[2020-09-25] MEDS ORDERED: POTASSIUM CHLORIDE ER 20 MEQ TAB.ER PO SCH (09:30)
[2020-09-25] MEDS: APIXABAN 2.5 MG TABLET PO SCH ×2 (10:59→21:09)
[2020-09-25] MEDS: allopurinoL 100 MG TAB PO SCH (10:59)
[2020-09-25] MEDS: METOPROLOL SUCCINATE (ER) 25 MG TAB.ER.24H PO SCH ×2 (10:59→21:09)
[2020-09-25] MEDS: FERROUS SULFATE 325 MG TAB PO SCH (10:59)
[2020-09-25] MEDS: DIGOXIN 62.5 MCG TAB PO SCH (12:03)
[2020-09-25] MEDS: INSULIN ASPART (NovoLOG) 100 UNIT/ML VIAL SQ SCH ×3 (12:22→21:09)
[2020-09-25 12:23] LABS: Glucose,Whole Blood 125 mg/dL (75-99)
[2020-09-25] MEDS: FUROSEMIDE 100 MG in SODIUM CHLORIDE 0.9% 90 ML IV SCH ×2 (16:26→23:29)
[2020-09-25 17:10] LABS: Glucose,Whole Blood 148 mg/dL (75-99)
[2020-09-25] MEDS ORDERED: LACTULOSE 20 GM/30 ML CUP PO PRN (17:33)
[2020-09-25] MEDS ORDERED: ONDANSETRON 4 MG/2 ML VIAL IVP PRN (17:33)
[2020-09-25] MEDS ORDERED: MAG HYDROX/AL HYDROX/SIMETH 30 ML CUP PO PRN (17:33)
[2020-09-25] MEDS ORDERED: NALOXONE 0.4 MG/ML 1 ML VIAL IV PRN (17:33)
[2020-09-25] MEDS ORDERED: MAGNESIUM HYDROXIDE 2,400 MG/10 ML CUP PO PRN (17:33)
[2020-09-25] MEDS ORDERED: PROCHLORPERAZINE 5 MG TAB PO PRN (17:33)
[2020-09-25] MEDS ORDERED: CALCIUM CARBONATE 500 MG CHEWABLE PO PRN (17:33)
--- NOTE | 2020-09-25 17:33 | P.HPIM ---
History of Present Illness H&P Date: 09/25/20 Chief Complaint: Short of breath History of presenting complaint: This is a pleasant 89-year-old patient follows with Dr. Viral De La Cruz. Chronic stable medical conditions include diabetes mellitus, hypertension, hyperlipidemia, memory impairment, osteoarthritis, peripheral neuropathy incontinent of urine does use a walker. Coronary artery disease. History is obtained by the son and at the bedside. Patient has been progressively getting short of breath QUITE some time. Yesterday became increasingly so. No cough. No fever no chills. Appetite is okay. Patient also got lower extremity edema. Patient sometimes bumps on legs and falls and has got some cellulitis of the lower extremity. Patient has symptoms other forgetful and unable to give much of a history that can also simple questions. Denies any obvious pain. No wheezing. Patient is also had weight loss. Review of systems: GEN.: Tired EYES: None HEENT: None NECK: None RESPIRATORY: As above CARDIOVASCULAR: No chest pain GASTROINTESTINAL: None GENITOURINARY: Incontinent] MUSCULOSKELETAL: Joint pains LYMPHATICS: None HEMATOLOGICAL: None PSYCHIATRY: Forgetful NEUROLOGICAL: Neuropathy Past medical history to include: Diabetes, hypertension, hyperlipidemia, cognitive impairment, osteoarthritis, hypothyroid, peripheral neuropathy, urinary incontinence, coronary artery disease with bypass Social history: Lives with her . Had been using a walker to recently. Not been able to get about. Stop smoking in remote past Family history: Patient adopted Physical examination: VITAL SIGNS: 98.3, 85, 18, 109/74, 95% room air GENERAL: BMI 23.3, sitting up in bed, tired. EYES: Pupils equal. Conjunctiva normal. HEENT: External appearance of nose and ears normal, oral cavity grossly normal. NECK: JVD raised; masses not palpable. HEART: First and second heart sounds are normal; edema present. LUNGS: Respiratory rate increased; decreased breath sounds. ABDOMEN: Soft, nontender, liver spleen not palpable, no masses palpable. PSYCH: Only can tell her name, does not know where she is otherwise she is herel. NEUROLOGICAL: Cranial nerves grossly intact; no facial asymmetry, power and sensation grossly intact. DERMATOLOGICAL: Redness in both lower extremity with some breakdown of skin, redness and increased local warmth LYMPHATICS: No lymph nodes palpable in the axilla and neck INVESTIGATIONS, reviewed in the clinical context: White count 7.4 hemoglobin 10.8 platelets 128 potassium 5.2.71 and creatinine 1.99 Troponin I 0.035 ProBNP 59,000 EKG tracing personally reviewed by me-pacemaker rhythm Computed tomography scan of the chest abdomen pelvis-nonspecific Chest x-ray film personally reviewed by me-cardiomegaly, venous prominence, elevated right diaphragm Previous testing: Creatinine 1.17 on 10/01/2018 Assessment: -Patient at baseline is good shortness of breath now progressively more so. With increasing edema. Likely CHF exacerbation. We'll try the patient on Lasix drip for 24 hours with strict I's and O's. 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 Strict I's and O's. We'll also use Silvadene cream to lower extremity with Kerlix and Bruno wrap. Fall precautions. Hold off Glucophage. Hold off potassium. Continue other medications. Prognosis guarded. Discussed with the son patient's CODE STATUS. DO NOT RESUSCITATE. Past Medical History Past Medical History: Diabetes Mellitus, Hyperlipidemia, Hypertension, Memory Impairment, Osteoarthritis (OA), Thyroid Disorder Additional Past Medical History / Comment(s): NEUROPATHY LEGS AND FEET, STATES SWELLING IN LEGS AND ANKLES WITH OCCASIONAL BLISTERS THAT SHE SCRATCHES AND THEY DRAIN., BACK AND KATHI SHOULDER PAIN. , INCONTINENT OF URINE-WEARS PADS., USES WALKER., STATES SHE LOST 150 LBS OVER THE LAST YEAR-WITHOUT ANY REASON STATES USUALLY NO APPETITE. SEE CARDIOLOGY H & P. History of Any Multi-Drug Resistant Organisms: None Reported Past Surgical History: Cholecystectomy, Coronary Bypass/CABG Additional Past Surgical History / Comment(s): sx to repair a torn tendon rt hip, lithotripsy,colonoscopy, cortisone inj rt shoulder Past Anesthesia/Blood Transfusion Reactions: No Reported Reaction Additional Past Anesthesia/Blood Transfusion Reaction / Comment(s): PT IS ADOPTED-UNKNOWN FAMILY HX. Type of Cardiac Device: Permanent Pacemaker Device Placement Date:: unk Past Psychological History: No Psychological Hx Reported Smoking Status: Never smoker Past Alcohol Use History: None Reported Additional Past Alcohol Use History / Comment(s): STATES SHE STARTED SMOKING AT 19 YRS OLD. UNSURE WHEN SHE QUIT -BUT STATES IT WAS A LONG TIME AGO. Past Drug Use History: None Reported - Past Family History Mother Family Medical History: Unable to Obtain Additional Family Medical History / Comment(s): PT ADOPTED. Medications and Allergies Home Medications Medication Instructions Recorded Confirmed Type Atorvastatin [Lipitor] 40 mg PO HS 11/04/16 09/25/20 History Nitroglycerin Sl Tabs [Nitrostat] 0.4 mg SUBLINGUAL Q5M PRN #25 tab 11/09/16 09/25/20 Rx Apixaban [Eliquis] 2.5 mg PO BID 09/28/18 09/25/20 History Ferrous Sulfate [Iron (65 MG 325 mg PO DAILY 09/28/18 09/25/20 History Elemental)] Potassium Chloride ER [K-Dur 20] 20 meq PO DAILY 09/28/18 09/25/20 History allopurinoL [Zyloprim] 100 mg PO DAILY 09/28/18 09/25/20 History Digoxin [Digitek] 62.5 mcg PO DAILY 09/25/20 09/25/20 History Furosemide [Lasix] 60 mg PO DAILY 09/25/20 09/25/20 History Metoprolol Succinate [Toprol XL] 25 mg PO BID 09/25/20 09/25/20 History metFORMIN HCL [Glucophage] 500 mg PO DAILY 09/25/20 09/25/20 History Allergies Allergy/AdvReac Type Severity Reaction Status Date / Time Sulfa (Sulfonamide Allergy Unknown Unknown Verified 09/25/20 07:19 Antibiotics) Physical Exam Vitals: Vital Signs Temp Pulse Pulse Resp BP BP Pulse Ox 09/25/20 08:00 87 18 09/25/20 07:57 87 18 102/66 99 09/25/20 07:20 85 18 109/74 95 09/25/20 02:52 89 16 114/61 97 09/25/20 00:42 98.3 F 116 H 18 112/80 100 Intake and Output 09/24/20 09/25/20 09/25/20 22:59 06:59 14:59 Other: Voiding Method Bedpan Weight 63.503 kg Results CBC & Chem 7: 09/25/20 01:18 09/25/20 01:18 Labs: Abnormal Lab Results - Last 24 Hours (Table) 09/25/20 09/25/20 09/25/20 Range/Units 01:18 01:18 01:18 RBC 3.63 L (3.80-5.40) m/uL Hgb 10.8 L (11.4-16.0) gm/dL RDW 16.8 H (11.5-15.5) % Plt Count 128 L (150-450) k/uL Lymphocytes # 0.4 L (1.0-4.8) k/uL Potassium 5.2 H (3.5-5.1) mmol/L BUN 71 H (7-17) mg/dL Creatinine 1.99 H (0.52-1.04) mg/dL Glucose 133 H (74-99) mg/dL Phosphorus 4.7 H (2.5-4.5) mg/dL Troponin I 0.035 H* (0.000-0.034) ng/mL Ur Leukocyte Esterase (Negative) Urine Bacteria (None) /hpf Hyaline Casts (0-2) /lpf Urine Mucus (None) /hpf 09/25/20 Range/Units 02:40 RBC (3.80-5.40) m/uL Hgb (11.4-16.0) gm/dL RDW (11.5-15.5) % Plt Count (150-450) k/uL Lymphocytes # (1.0-4.8) k/uL Potassium (3.5-5.1) mmol/L BUN (7-17) mg/dL Creatinine (0.52-1.04) mg/dL Glucose (74-99) mg/dL Phosphorus (2.5-4.5) mg/dL Troponin I (0.000-0.034) ng/mL Ur Leukocyte Esterase Trace H (Negative) Urine Bacteria Rare H (None) /hpf Hyaline Casts 15 H (0-2) /lpf Urine Mucus Rare H (None) /hpf Thrombosis Risk Factor Assmnt - Choose All That Apply Each Risk Factor Represents 3 Points: Age 75 years or older Thrombosis Risk Factor Assessment Total Risk Factor Score: 3 Thrombosis Risk Factor Assessment Level: Moderate Risk
[2020-09-25] MEDS: ACETAMINOPHEN TAB 325 MG TAB PO PRN (19:32)
[2020-09-25 20:28] LABS: Glucose,Whole Blood 202 mg/dL (75-99)
[2020-09-25] MEDS: MELATONIN 3 MG TABLET PO PRN (21:09)
[2020-09-25] MEDS: ATORVASTATIN 40 MG TAB PO SCH (21:09)
[2020-09-26 06:07] LABS: Glucose,Whole Blood 114 mg/dL (75-99)
[2020-09-26] MEDS: INSULIN ASPART (NovoLOG) 100 UNIT/ML VIAL SQ SCH ×4 (06:07→21:14)
[2020-09-26] MEDS: FUROSEMIDE 100 MG in SODIUM CHLORIDE 0.9% 90 ML IV SCH ×3 (06:17→23:05)
[2020-09-26] MEDS: APIXABAN 2.5 MG TABLET PO SCH ×2 (07:48→21:19)
[2020-09-26] MEDS: allopurinoL 100 MG TAB PO SCH (07:48)
[2020-09-26] MEDS: METOPROLOL SUCCINATE (ER) 25 MG TAB.ER.24H PO SCH ×2 (07:48→21:18)
[2020-09-26] MEDS: DIGOXIN 62.5 MCG TAB PO SCH (07:48)
[2020-09-26] MEDS: FERROUS SULFATE 325 MG TAB PO SCH (07:48)
[2020-09-26] MEDS: ACETAMINOPHEN TAB 325 MG TAB PO PRN (08:51)
[2020-09-26 11:34] LABS: Glucose,Whole Blood 171 mg/dL (75-99)
--- NOTE | 2020-09-26 12:54 | P.CRDCN ---
History of Present Illness Consult date: 09/26/20 Consult reason: congestive heart failure History of present illness: The patient is an 89-year-old female with past medical history including lito nary artery disease, diabetes, hypertension, hyperlipidemia, dementia, and arthritis, who presented to the hospital with new onset of shortness of breath. Apparently this had slowly been progressing over the course of a month. She was brought to the emergency room by her and son. Interviewed and examined lying in bed. Patient is currently in pain, which she reports is in the right knee. She denies any chest pain, shortness of breath, palpitations, dizziness, or lightheadedness. She does have lower extremity edema and lower extremity leg wounds. DIAGNOSTICS: EKG shows paced rhythm with a heart rate of 116 bpm Chest x-ray shows cardiomegaly with mild interstitial pulmonary edema; possible atelectasis and/or pneumonia in the right base Chest/abdominal CT scan shows no acute intra-abdominal process with small intra- abdominal ascites Laboratory data WBC 7.4, hemoglobin 10.8, hematocrit 34.8, platelet 128, sodium 137, potassium 5.2, BUN 71, creatinine 1.99, magnesium 2.3, AST 24, ALT 12, troponin 0.035, BNP 59,000 PAST MEDICAL HISTORY: Coronary artery disease, diabetes, hypertension, hyperlipidemia, dementia, arthritis REVIEW OF SYSTEMS: No fever or chills. No cough or expectoration. No diaphoresis. Patient denies headache, dizziness, blurred vision, double vision. Patient denies any stomach discomfort. No nausea, vomiting. No hematochezia. No hematemesis. Denies any black stools or blood in his stools. Denies dysuria or hematuria. No muscle weakness or numbness. Positive for joint pain. No shortness of breath. No chest pain PHYSICAL EXAMINATION: This is a 89-year-old female in mild distress at the time of my examination. HEENT: Head is atraumatic, normocephalic. Pupils are equal, round. Sclerae anicteric. Conjunctivae are clear. Mucous membranes of the mouth are moist. Neck is supple. There is no jugular venous distention. No carotid bruit is heard. CHEST EXAMINATION: Bilateral crackles. No chest wall tenderness is noted on palpation or with deep breathing. HEART EXAMINATION: Heart regular rate and rhythm. Soft systolic murmur.murmurs, gallops or rub. ABDOMEN: Soft, nontender. Bowel sounds are heard. No organomegaly noted. EXTREMITIES: 3+ pitting edema. Bilateral leg wraps. NEUROLOGIC EXAMINATION: Patient is awake, alert and oriented x2. FINAL ASSESSMENT AND PLAN: #1 congestive heart failure, BNP 59,000, anasarca #2 chronic kidney disease, GFR 25 #3 elevated troponin, cardiorenal #4 chronic persistent atrial fibrillation, on anticoagulation, on digoxin #5 anemia PLAN: We will continue Lasix drip for hypervolemia. Continue to monitor kidney function and electrolytes. Discontinue digoxin due to elevated creatinine level. Manage pain per primary care provider service. Past Medical History Past Medical History: Diabetes Mellitus, Hyperlipidemia, Hypertension, Memory Impairment, Osteoarthritis (OA), Thyroid Disorder Additional Past Medical History / Comment(s): NEUROPATHY LEGS AND FEET, STATES SWELLING IN LEGS AND ANKLES WITH OCCASIONAL BLISTERS THAT SHE SCRATCHES AND THEY DRAIN., BACK AND KATHI SHOULDER PAIN. , INCONTINENT OF URINE-WEARS PADS., USES WALKER., STATES SHE LOST 150 LBS OVER THE LAST YEAR-WITHOUT ANY REASON STATES USUALLY NO APPETITE. SEE CARDIOLOGY H & P. History of Any Multi-Drug Resistant Organisms: None Reported Past Surgical History: Cholecystectomy, Coronary Bypass/CABG Additional Past Surgical History / Comment(s): sx to repair a torn tendon rt hip, lithotripsy,colonoscopy, cortisone inj rt shoulder Past Anesthesia/Blood Transfusion Reactions: No Reported Reaction Additional Past Anesthesia/Blood Transfusion Reaction / Comment(s): PT IS ADOPTED-UNKNOWN FAMILY HX. Type of Cardiac Device: Permanent Pacemaker Device Placement Date:: unk Past Psychological History: No Psychological Hx Reported Past Alcohol Use History: None Reported Additional Past Alcohol Use History / Comment(s): STATES SHE STARTED SMOKING AT 19 YRS OLD. UNSURE WHEN SHE QUIT -BUT STATES IT WAS A LONG TIME AGO. Past Drug Use History: None Reported - Past Family History Mother Family Medical History: Unable to Obtain Additional Family Medical History / Comment(s): PT ADOPTED. Medications and Allergies Home Medications Medication Instructions Recorded Confirmed Type Atorvastatin [Lipitor] 40 mg PO HS 11/04/16 09/25/20 History Nitroglycerin Sl Tabs [Nitrostat] 0.4 mg SUBLINGUAL Q5M PRN #25 tab 11/09/16 09/25/20 Rx Apixaban [Eliquis] 2.5 mg PO BID 11/02/18 10/30/20 History Ferrous Sulfate [Iron (65 MG 325 mg PO DAILY 09/28/18 09/25/20 History Elemental)] Potassium Chloride ER [K-Dur 20] 20 meq PO DAILY 09/28/18 09/25/20 History allopurinoL [Zyloprim] 100 mg PO DAILY 09/28/18 09/25/20 History Digoxin [Digitek] 62.5 mcg PO DAILY 09/25/20 09/25/20 History Furosemide [Lasix] 60 mg PO DAILY 09/25/20 09/25/20 History Metoprolol Succinate [Toprol XL] 25 mg PO BID 09/25/20 09/25/20 History metFORMIN HCL [Glucophage] 500 mg PO DAILY 09/25/20 09/25/20 History Allergies Allergy/AdvReac Type Severity Reaction Status Date / Time Sulfa (Sulfonamide Allergy Unknown Unknown Verified 09/25/20 07:19 Antibiotics) Physical Exam Vitals: Vital Signs Temp Pulse Resp BP BP Pulse Ox 09/26/20 11:22 98.1 F 84 18 114/57 92 L 09/26/20 09:37 85 111/68 09/26/20 07:30 98.3 F 101 H 18 105/66 94 L 09/26/20 04:00 97.9 F 86 16 117/70 93 L 09/26/20 00:00 97.7 F 84 16 108/64 94 L 09/25/20 20:00 97.5 F L 90 18 121/58 98 09/25/20 16:00 98 16 124/74 96 Intake and Output 09/25/20 09/26/20 09/26/20 22:59 06:59 14:59 Intake Total 480 138.5 120 Output Total 100 400 Balance 380 -261.5 120 Intake: Intake, IV Titration 138.5 Amount Furosemide 100 mg In 138.5 Sodium Chloride 0.9% 90 ml @ 10 MG/HR 10 mls/hr IV .Q10H [facility] Rx#: [id number] Oral 480 120 Output: Urine 100 400 Other: Voiding Method Bedpan Weight 57 kg 57 kg Results 09/25/20 01:18 09/25/20 01:18 Current Medications Generic Name Dose Route Start Last Admin Trade Name Freq PRN Reason Stop Dose Admin Acetaminophen 650 mg 09/25/20 17:33 09/26/20 08:51 Acetaminophen Tab 325 Mg Tab PO 650 mg Q6HR PRN Administration Mild Pain or Fever > 100.5 Al Hydroxide/Mg Hydroxide 15 ml 09/25/20 17:33 Mag Hydrox/Al Hydrox/Simeth 30 Ml Cup PO Q6HR PRN Indigestion Allopurinol 100 mg 09/25/20 09:30 09/26/20 07:48 Allopurinol 100 Mg Tab PO 100 mg DAILY [facility] Administration Apixaban 2.5 mg 09/25/20 09:30 09/26/20 07:48 Apixaban 2.5 Mg Tablet PO 2.5 mg BID SAM Administration Atorvastatin Calcium 40 mg 09/25/20 21:00 09/25/20 21:09 Atorvastatin 40 Mg Tab PO 40 mg HS SAM Administration Calcium Carbonate/Glycine 1,000 mg 09/25/20 17:33 Calcium Carbonate 500 Mg Chewable PO Q4HR PRN Dyspepsia Ferrous Sulfate 325 mg 09/25/20 09:30 09/26/20 07:48 Ferrous Sulfate 325 Mg Tab PO 325 mg DAILY SAM Administration Cefazolin Sodium 1,000 mg/ 50 mls @ 100 mls/hr 09/25/20 16:00 09/26/20 07:48 Sodium Chloride IVPB 100 mls/hr Q8HR [facility] Administration Furosemide 100 mg/ Sodium 100 mls @ 10 mls/hr 09/25/20 14:45 09/26/20 06:17 Chloride IV 10 mg/hr .Q10H [facility] 10 mls/hr Administration 10 MG/HR Insulin Aspart 0 unit 09/25/20 12:30 09/26/20 06:07 Insulin Aspart (Novolog) 100 Unit/Ml Vial SQ Not Given ACHS [facility] Protocol Lactulose 20 gm 09/25/20 17:33 Lactulose 20 Gm/30 Ml Cup PO DAILY PRN Constipation Magnesium Hydroxide 2,400 mg 09/25/20 17:33 Magnesium Hydroxide 2,400 Mg/10 Ml Cup PO DAILY PRN Constipation Melatonin 3 mg 09/25/20 17:33 09/25/20 21:09 Melatonin 3 Mg Tablet PO 3 mg HS PRN Administration Insomnia Metoprolol Succinate 25 mg 09/25/20 09:30 09/26/20 07:48 Metoprolol Succinate (Er) 25 Mg Tab.Er.24h PO 25 mg BID [facility] Administration Naloxone HCl 0.2 mg 09/25/20 17:33 Naloxone 0.4 Mg/Ml 1 Ml Vial IV Q2M PRN Opioid Reversal Nitroglycerin 0.4 mg 09/25/20 09:17 Nitroglycerin Sl Tabs 0.4 Mg Tab SUBLINGUAL Q5M PRN Chest Pain Ondansetron HCl 4 mg 09/25/20 17:33 Ondansetron 4 Mg/2 Ml Vial IVP Q8HR PRN Nausea And Vomiting Prochlorperazine Maleate 5 mg 09/25/20 17:33 Prochlorperazine 5 Mg Tab PO Q8HR PRN Nausea And Vomiting Silver Sulfadiazine 1 applic 09/25/20 21:00 09/26/20 08:03 Silver Sulfadiazine 1% Cream 25 Gm Tube TOPICAL 1 applic BID [facility] Administration Intake and Output 09/25/20 09/26/20 09/26/20 22:59 06:59 14:59 Intake Total 480 138.5 120 Output Total 100 400 Balance 380 -261.5 120 Intake: Intake, IV Titration 138.5 Amount Furosemide 100 mg In 138.5 Sodium Chloride 0.9% 90 ml @ 10 MG/HR 10 mls/hr IV .Q10H [facility] Rx#: [id number] Oral 480 120 Output: Urine 100 400 Other: Voiding Method Bedpan Weight 57 kg 57 kg Patient Weight 09/27/20 05:59 Weight 57 kg 09/25/20 01:18 09/25/20 01:18
[2020-09-26 17:36] LABS: Glucose,Whole Blood 212 mg/dL (75-99)
[2020-09-26 20:22] LABS: Glucose,Whole Blood 134 mg/dL (75-99)
[2020-09-26] MEDS: ATORVASTATIN 40 MG TAB PO SCH (21:18)
[2020-09-26] MEDS: MELATONIN 3 MG TABLET PO PRN (21:19)
--- NOTE | 2020-09-26 22:50 | P.PN ---
Progress Note - Text Progress Note Date: 09/26/20 Chief Complaint: Short of breath History of presenting complaint: This is a pleasant 89-year-old patient follows with Dr. Viral De La Cruz. Chronic stable medical conditions include diabetes mellitus, hypertension, hyperlipidemia, memory impairment, osteoarthritis, peripheral neuropathy incontinent of urine does use a walker. Coronary artery disease. History is obtained by the son and at the bedside. Patient has been progressively getting short of breath QUITE some time. Yesterday became increasingly so. No cough. No fever no chills. Appetite is okay. Patient also got lower extremity edema. Patient sometimes bumps on legs and falls and has got some cellulitis of the lower extremity. Patient has symptoms other forgetful and unable to give much of a history that can also simple questions. Denies any obvious pain. No wheezing. Patient is also had weight loss. Admitted with-CHF exacerbation, put on Lasix drip. Also bilateral lower extremity cellulitis with local trauma from falls. Put on Silvadene cream and IV Ancef. Today-feeling a bit better. Breathing a bit better. Edema going up. Took 100% of her breakfast. Patient output could not be measured at she is rather incontinent. Review of systems: Was done for constitutional, cardiovascular, GI, pulmonary. relevant finding as above Active Medications Acetaminophen (Acetaminophen Tab 325 Mg Tab) 650 mg PO Q6HR PRN PRN Reason: Mild Pain or Fever > 100.5 Last Admin: 09/26/20 08:51 Dose: 650 mg Documented by: Al Hydroxide/Mg Hydroxide (Mag Hydrox/Al Hydrox/Simeth 30 Ml Cup) 15 ml PO Q6HR PRN PRN Reason: Indigestion Allopurinol (Allopurinol 100 Mg Tab) 100 mg PO DAILY [facility] Last Admin: 09/26/20 07:48 Dose: 100 mg Documented by: Apixaban (Apixaban 2.5 Mg Tablet) 2.5 mg PO BID [facility] Last Admin: 09/26/20 21:19 Dose: 2.5 mg Documented by: Atorvastatin Calcium (Atorvastatin 40 Mg Tab) 40 mg PO HS [facility] Last Admin: 09/26/20 21:18 Dose: 40 mg Documented by: Calcium Carbonate/Glycine (Calcium Carbonate 500 Mg Chewable) 1,000 mg PO Q4HR PRN PRN Reason: Dyspepsia Ferrous Sulfate (Ferrous Sulfate 325 Mg Tab) 325 mg PO DAILY [facility] Last Admin: 09/26/20 07:48 Dose: 325 mg Documented by: Cefazolin Sodium 1,000 mg/ (Sodium Chloride) 50 mls @ 100 mls/hr IVPB Q8HR [facility] Last Admin: 09/26/20 17:04 Dose: 100 mls/hr Documented by: Furosemide 100 mg/ Sodium (Chloride) 100 mls @ 10 mls/hr IV .Q10H [facility] Last Admin: 09/26/20 17:03 Dose: 10 mg/hr, 10 mls/hr Documented by: Insulin Aspart (Insulin Aspart (Novolog) 100 Unit/Ml Vial) 0 unit SQ ACHS [facility]; Protocol Last Admin: 09/26/20 21:14 Dose: Not Given Documented by: Lactulose (Lactulose 20 Gm/30 Ml Cup) 20 gm PO DAILY PRN PRN Reason: Constipation Magnesium Hydroxide (Magnesium Hydroxide 2,400 Mg/10 Ml Cup) 2,400 mg PO DAILY PRN PRN Reason: Constipation Melatonin (Melatonin 3 Mg Tablet) 3 mg PO HS PRN PRN Reason: Insomnia Last Admin: 09/26/20 21:19 Dose: 3 mg Documented by: Metoprolol Succinate (Metoprolol Succinate (Er) 25 Mg Tab.Er.24h) 25 mg PO BID [facility] Last Admin: 09/26/20 21:18 Dose: 25 mg Documented by: Naloxone HCl (Naloxone 0.4 Mg/Ml 1 Ml Vial) 0.2 mg IV Q2M PRN PRN Reason: Opioid Reversal Nitroglycerin (Nitroglycerin Sl Tabs 0.4 Mg Tab) 0.4 mg SUBLINGUAL Q5M PRN PRN Reason: Chest Pain Ondansetron HCl (Ondansetron 4 Mg/2 Ml Vial) 4 mg IVP Q8HR PRN PRN Reason: Nausea And Vomiting Prochlorperazine Maleate (Prochlorperazine 5 Mg Tab) 5 mg PO Q8HR PRN PRN Reason: Nausea And Vomiting Silver Sulfadiazine (Silver Sulfadiazine 1% Cream 25 Gm Tube) 1 applic TOPICAL BID [facility] Last Admin: 09/26/20 21:19 Dose: 1 applic Documented by: Physical examination: VITAL SIGNS: 87.8, 88, 18, 103 was 65, 92% room air GENERAL: Propped up in bed, tired EYES: Pupils equal. Conjunctiva normal. NECK: JVD raised; masses not palpable. HEART: First and second heart sounds are normal; edema present. LUNGS: Respiratory rate increased; decreased breath sounds. ABDOMEN: Soft, nontender, liver spleen not palpable, no masses palpable. PSYCH: Only can tell her name, does not know where she is otherwise she is herel. DERMATOLOGICAL: A strep swab of the lower extremity INVESTIGATIONS, reviewed in the clinical context: White count 7.4 hemoglobin 10.8 platelets 128 potassium 5.2.71 and creatinine 1.99 Troponin I 0.035 ProBNP 59,000 EKG tracing personally reviewed by me-pacemaker rhythm Computed tomography scan of the chest abdomen pelvis-nonspecific Chest x-ray film personally reviewed by me-cardiomegaly, venous prominence, elevated right diaphragm Previous testing: Creatinine 1.17 on 10/01/2018 Assessment: -Acute on chronic CHF exacerbation-a Lasix drip-slow to respond -Bilateral lower extremity cellulitis secondary to local trauma from falls -Diabetes mellitus type 2 -Hyperlipidemia -Essential hypertension -Advance cognitive impairment from late onset Alzheimer's dementia -Primary osteoarthritis -Hypothyroid -Diabetic peripheral neuropathy -Chronic urinary incontinence -Acute kidney injury -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 Repeat labs. Muscle guarded. Other medications to continue. Antibiotic IV Ancef to continue.
[2020-09-27 06:09] LABS: Glucose,Whole Blood 101 mg/dL (75-99)
[2020-09-27] MEDS: INSULIN ASPART (NovoLOG) 100 UNIT/ML VIAL SQ SCH ×4 (06:10→21:23)
[2020-09-27] MEDS: FUROSEMIDE 100 MG in SODIUM CHLORIDE 0.9% 90 ML IV SCH (06:11)
[2020-09-27 08:05] LABS: Potassium 3.2 mmol/L (3.5-5.1)
[2020-09-27] MEDS ORDERED: diphenhydrAMINE 25 MG CAP PO STA (08:52)
[2020-09-27] MEDS ORDERED: CALAMINE/ZINC OXIDE LOTION 177 ML BTL TOPICAL PRN (08:53)
[2020-09-27] MEDS: METOPROLOL SUCCINATE (ER) 25 MG TAB.ER.24H PO SCH ×2 (09:09→21:23)
[2020-09-27] MEDS: APIXABAN 2.5 MG TABLET PO SCH ×2 (09:09→21:23)
[2020-09-27] MEDS: allopurinoL 100 MG TAB PO SCH (09:09)
[2020-09-27] MEDS: FERROUS SULFATE 325 MG TAB PO SCH (09:09)
[2020-09-27] MEDS ORDERED: POTASSIUM CHLORIDE ER 20 MEQ TAB.ER PO STA (11:07)
[2020-09-27 11:51] LABS: Glucose,Whole Blood 143 mg/dL (75-99)
--- NOTE | 2020-09-27 12:01 | XR ---
EXAMINATION TYPE: XR chest 1V DATE OF EXAM: 09/27/2020 COMPARISON: 09/25/2020 INDICATION: Pneumonia TECHNIQUE: Single frontal view of the chest is obtained. FINDINGS: The heart size is normal. Sternotomy wires are in the midline. Pacemaker overlies left chest. There is chronic elevation of the right diaphragm. The pulmonary vasculature is normal. The suspected infiltrate at the right base may have improved over the interval. IMPRESSION: 1. Improving infiltrate at the right base. Residual may remain. Follow-up can be performed as clinica lly indicated.
--- NOTE | 2020-09-27 12:41 | P.PN ---
Subjective Progress Note Date: 09/27/20 Patient interviewed and examined lying comfortably in bed. She states she is doing well. She denies any chest pain, chest pressure, or shortness of breath. She denies any joint discomfort at this time. GENERAL: Well-appearing, well-nourished and in no acute distress. NECK: Supple without JVD or thyromegaly. LUNGS: Breath sounds clear to auscultation bilaterally. Diminished in the b ases. Respiration equal and unlabored. No wheezes, rales or rhonchi. HEART: Regular rate and rhythm. Systolic murmur audible. No rubs or gallops. S1 and S2 heard. EXTREMITIES: limited range of motion. 2+ edema; improved. No clubbing or cyanosis. Peripheral pulses intact and strong. VITALS: Blood pressure 117/51, pulse rate 94, respiratory rate 18, temperature 97.9 LABS: Sodium 137, potassium 3.2, BUN 63, creatinine 1.52 IMPRESSION: #1 congestive heart failure, improving #2 chronic kidney disease #3 elevated troponin, cardiorenal syndrome #4 chronic persistent atrial fibrillation, on anticoagulation #5 anemia #6 hypokalemia PLAN: Discontinue Lasix drip and start 40 mg furosemide IV push. Start Aldactone for hypokalemia. Echocardiogram pending. Continue to monitor electrolytes and kidney function. Objective - Vital Signs Vital signs: Vital Signs Temp 97.9 F 09/27/20 08:00 Pulse 94 09/27/20 08:00 Resp 18 09/27/20 08:00 BP 117/51 09/27/20 08:00 Pulse Ox 96 09/27/20 08:00 Intake & Output 09/26/20 09/27/20 09/27/20 19:59 06:59 18:59 Intake Total 100 Output Total Balance 100 Weight Intake: Intake, IV Titration Amount Furosemide 100 mg In Sodium Chloride 0.9% 90 ml @ 10 MG/HR 10 mls/hr IV .Q10H [facility] Rx#: [id number] Oral 100 Output: Urine Other: Voiding Method Bedpan # Bowel Movements 1 - Labs CBC & Chem 7: 09/25/20 01:18 09/27/20 07:15 Labs: Abnormal Lab Results - Last 24 Hours (Table) 09/26/20 09/26/20 09/27/20 Range/Units 17:28 20:21 06:08 Potassium (3.5-5.1) mmol/L BUN (7-17) mg/dL Creatinine (0.52-1.04) mg/dL POC Glucose (mg/dL) 212 H 134 H 101 H (75-99) mg/dL Calcium (8.4-10.2) mg/dL 09/27/20 09/27/20 Range/Units 07:15 11:42 Potassium 3.2 L (3.5-5.1) mmol/L BUN 63 H (7-17) mg/dL Creatinine 1.52 H (0.52-1.04) mg/dL POC Glucose (mg/dL) 143 H (75-99) mg/dL Calcium 8.0 L (8.4-10.2) mg/dL
[2020-09-27] MEDS: SPIRONOLACTONE 25 MG TAB PO SCH (12:58)
--- NOTE | 2020-09-27 15:38 | P.PN ---
Progress Note - Text Progress Note Date: 09/27/20 Chief Complaint: Short of breath History of presenting complaint: This is a pleasant 89-year-old patient follows with Dr. Viral De La Cruz. Chronic stable medical conditions include diabetes mellitus, hypertension, hyperlipidemia, memory impairment, osteoarthritis, peripheral neuropathy incontinent of urine does use a walker. Coronary artery disease. History is obtained by the son and at the bedside. Patient has been progressively getting short of breath QUITE some time. Yesterday became increasingly so. No cough. No fever no chills. Appetite is okay. Patient also got lower extremity edema. Patient sometimes bumps on legs and falls and has got some cellulitis of the lower extremity. Patient has symptoms other forgetful and unable to give much of a history that can also simple questions. Denies any obvious pain. No wheezing. Patient is also had weight loss. Admitted with-CHF exacerbation, put on Lasix drip. Also bilateral lower extremity cellulitis with local trauma from falls. Put on Silvadene cream and IV Ancef. Today-on IV Lasix drip this morning. Edema has been coming down. Breathing better. Oral intake improved. Review of systems: Was done for constitutional, cardiovascular, GI, pulmonary. relevant finding as above Active Medications Acetaminophen (Acetaminophen Tab 325 Mg Tab) 650 mg PO Q6HR PRN PRN Reason: Mild Pain or Fever > 100.5 Last Admin: 09/26/20 08:51 Dose: 650 mg Documented by: Al Hydroxide/Mg Hydroxide (Mag Hydrox/Al Hydrox/Simeth 30 Ml Cup) 15 ml PO Q6HR PRN PRN Reason: Indigestion Allopurinol (Allopurinol 100 Mg Tab) 100 mg PO DAILY [facility] Last Admin: 09/27/20 09:09 Dose: 100 mg Documented by: Apixaban (Apixaban 2.5 Mg Tablet) 2.5 mg PO BID [facility] Last Admin: 09/27/20 09:09 Dose: 2.5 mg Documented by: Atorvastatin Calcium (Atorvastatin 40 Mg Tab) 40 mg PO HS [facility] Last Admin: 09/26/20 21:18 Dose: 40 mg Documented by: Calamine (Calamine/Zinc Oxide Lotion 177 Ml Btl) 1 applic TOPICAL TID PRN PRN Reason: Skin Irritation Calcium Carbonate/Glycine (Calcium Carbonate 500 Mg Chewable) 1,000 mg PO Q4HR PRN PRN Reason: Dyspepsia Diphenhydramine HCl (Diphenhydramine Elixir 25 Mg/10 Ml Cup) 12.5 mg PO Q6H PRN PRN Reason: Itching Ferrous Sulfate (Ferrous Sulfate 325 Mg Tab) 325 mg PO DAILY [facility] Last Admin: 09/27/20 09:09 Dose: 325 mg Documented by: Furosemide (Furosemide 10 Mg/Ml 4 Ml Vial) 40 mg IV Q8HR [facility] Cefazolin Sodium 1,000 mg/ (Sodium Chloride) 50 mls @ 100 mls/hr IVPB Q12HR [facility] Insulin Aspart (Insulin Aspart (Novolog) 100 Unit/Ml Vial) 0 unit SQ ACHS [facility]; Protocol Last Admin: 09/27/20 06:10 Dose: Not Given Documented by: Lactulose (Lactulose 20 Gm/30 Ml Cup) 20 gm PO DAILY PRN PRN Reason: Constipation Magnesium Hydroxide (Magnesium Hydroxide 2,400 Mg/10 Ml Cup) 2,400 mg PO DAILY PRN PRN Reason: Constipation Melatonin (Melatonin 3 Mg Tablet) 3 mg PO HS PRN PRN Reason: Insomnia Last Admin: 09/26/20 21:19 Dose: 3 mg Documented by: Metoprolol Succinate (Metoprolol Succinate (Er) 25 Mg Tab.Er.24h) 25 mg PO BID [facility] Last Admin: 09/27/20 09:09 Dose: 25 mg Documented by: Naloxone HCl (Naloxone 0.4 Mg/Ml 1 Ml Vial) 0.2 mg IV Q2M PRN PRN Reason: Opioid Reversal Nitroglycerin (Nitroglycerin Sl Tabs 0.4 Mg Tab) 0.4 mg SUBLINGUAL Q5M PRN PRN Reason: Chest Pain Ondansetron HCl (Ondansetron 4 Mg/2 Ml Vial) 4 mg IVP Q8HR PRN PRN Reason: Nausea And Vomiting Prochlorperazine Maleate (Prochlorperazine 5 Mg Tab) 5 mg PO Q8HR PRN PRN Reason: Nausea And Vomiting Silver Sulfadiazine (Silver Sulfadiazine 1% Cream 25 Gm Tube) 1 applic TOPICAL BID [facility] Last Admin: 09/27/20 09:10 Dose: 1 applic Documented by: Spironolactone (Spironolactone 25 Mg Tab) 25 mg PO DAILY [facility] Last Admin: 09/27/20 12:58 Dose: 25 mg Documented by: Physical examination: VITAL SIGNS: 97.9, 80, 18, 103/52, 98% on 2 L GENERAL: Laying in bed, tired EYES: Pupils equal. Conjunctiva normal. NECK: JVD raised; masses not palpable. HEART: First and second heart sounds are normal; edema present. LUNGS: Respiratory rate increased; decreased breath sounds. ABDOMEN: Soft, nontender, liver spleen not palpable, no masses palpable. PSYCH: Only can tell her name, does not know where she is otherwise she is herel. DERMATOLOGICAL: Bruno wrap of the lower extremity INVESTIGATIONS, reviewed in the clinical context: Potassium 3.2 creatinine 1.5 to Chest x-ray October 07-lung hoover clear Previous testing White count 7.4 hemoglobin 10.8 platelets 128 potassium 5.2.71 and creatinine 1.99 Troponin I 0.035 ProBNP 59,000 EKG tracing personally reviewed by me-pacemaker rhythm Computed tomography scan of the chest abdomen pelvis-nonspecific Chest x-ray film personally reviewed by me-cardiomegaly, venous prominence, elevated right diaphragm Previous testing: Creatinine 1.17 on 10/01/2018 Assessment: -Acute on chronic CHF exacerbation-on Lasix drip this morning, changed to IV Lasix bolus today. 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 Continue with IV Ancef. Repeat labs. Other medications to continue.
[2020-09-27 17:19] LABS: Glucose,Whole Blood 156 mg/dL (75-99)
[2020-09-27] MEDS: FUROSEMIDE 10 MG/ML 4 ML VIAL IV SCH ×2 (17:40→23:12)
[2020-09-27] MEDS: ACETAMINOPHEN TAB 325 MG TAB PO PRN (19:44)
[2020-09-27 20:12] LABS: Glucose,Whole Blood 177 mg/dL (75-99)
[2020-09-27] MEDS: ATORVASTATIN 40 MG TAB PO SCH (21:22)
[2020-09-27] MEDS: MELATONIN 3 MG TABLET PO PRN (22:05)
[2020-09-28] MEDS: diphenhydrAMINE ELIXIR 25 MG/10 ML CUP PO PRN (00:09)
[2020-09-28] MEDS: ACETAMINOPHEN TAB 325 MG TAB PO PRN (03:49)
[2020-09-28 06:08] LABS: Glucose,Whole Blood 92 mg/dL (75-99)
[2020-09-28] MEDS: INSULIN ASPART (NovoLOG) 100 UNIT/ML VIAL SQ SCH ×4 (06:43→21:16)
[2020-09-28 09:14] LABS: Calcium 8.2 mg/dL (8.4-10.2); Potassium 3.6 mmol/L (3.5-5.1)
[2020-09-28] MEDS: FUROSEMIDE 10 MG/ML 4 ML VIAL IV SCH (09:23)
[2020-09-28] MEDS: APIXABAN 2.5 MG TABLET PO SCH ×2 (09:24→21:15)
[2020-09-28] MEDS: SPIRONOLACTONE 25 MG TAB PO SCH (09:24)
[2020-09-28] MEDS: allopurinoL 100 MG TAB PO SCH (09:24)
[2020-09-28] MEDS: FERROUS SULFATE 325 MG TAB PO SCH (09:24)
[2020-09-28] MEDS: METOPROLOL SUCCINATE (ER) 25 MG TAB.ER.24H PO SCH ×2 (09:24→21:16)
--- NOTE | 2020-09-28 10:00 | ECHOF ---
Referral Reason:CHF MEASUREMENTS -------- HEIGHT: 165.1 cm WEIGHT: 56.7 kg BP: 114/57 RVIDd: 5.8 cm (< 3.3) IVSd: 1.1 cm (0.6 - 1.1) LVIDd: 6.0 cm (3.9 - 5.3) LVPWd: 1.2 cm (0.6 - 1.1) IVSs: 1.2 cm LVIDs: 5.2 cm LVPWs: 1.7 cm LAESV Index (A-L): 81.54 ml/m Ao Diam: 2.6 cm (2.0 - 3.7) AV Cusp: 1.4 cm (1.5 - 2.6) LA Diam: 6.0 cm (2.7 - 3.8) AR PHT: 319 ms RAP: 5.00 mmHg RVSP: 51.13 mmHg FINDINGS -------- This was a technically adequate study. The left ventricle is moderately dilated. There is borderline concentric left ventricular hypertrop hy. There is moderate global hypokinesis of LV . Overall left ventricular systolic function is se verely impaired with, an EF between 25 - 30 %. The right ventricle is severely enlarged. LA is severely dilated >40 ml/m2 The right atrium is moderately enlarged. Electronic pacemaker lead seen in the right atrial cavity. Interatrial and interventricular septum intact. The aortic valve was not well visualized. There is severe aortic valve sclerosis. Trace to mild a ortic regurgitation. There is no evidence of aortic stenosis. Moderate mitral annular calcification present. [id number] mitral regurgitation is present. Moderate to severe tricuspid regurgitation present. There is moderate to severe pulmonary hypertens ion. The right ventricular systolic pressure, as measured by Doppler, is 51.13mmHg. There is no pulmonic regurgitation present. The aortic root size is normal. IVC Not well visulized. There is no pericardial effusion. CONCLUSIONS -------- 1. The left ventricle is moderately dilated. 2. There is borderline concentric left ventricular hypertrophy. 3. There is moderate global hypokinesis of LV . 4. Overall left ventricular systolic function is severely impaired with, an EF between 25 - 30 %. 5. The right ventricle is severely enlarged. 6. LA is severely dilated >40 ml/m2 7. The right atrium is moderately enlarged. 8. There is severe aortic valve sclerosis. 9. Trace to mild aortic regurgitation. 10. There is no evidence of aortic stenosis. 11. Moderate mitral annular calcification present. 12. [id number] mitral regurgitation is present. 13. Moderate to severe tricuspid regurgitation present. 14. There is moderate to severe pulmonary hypertension. 15. The right ventricular systolic pressure, as measured by Doppler, is 51.13mmHg. ELECTROLYSIS INVESTIGATOR: Yesi Kessler RDCS
[2020-09-28 11:39] LABS: Glucose,Whole Blood 135 mg/dL (75-99)
--- NOTE | 2020-09-28 11:51 | CDI ---
Documentation Clarification Form Date: 09/28/2020 11:38:21 AM From: Velvet Sinha RN, CCDS Admit Date: 09/28/2020 09:31:00 AM Patient Name: Cheyenne Arteaga Visit Number: [id number] ATTENTION: The Clinical Documentation Specialists (CDI) and [facility] Coding Staff appreciate your assistance in clarifying documentation. Please respond to the clarification below the line at the bottom and electronically sign. The CDI & [facility] Coding staff will review the response and follow-up if needed. Please note: Queries are made part of the Legal Health Record. If you have any questions, please contact the author of this message via ITS. Dr. Sylvester CHF is documented in the H&P and Consults and requires further specificity. History/Risk Factors: CAD w CABG, DM, Hyperlipidemia, HTN, Clinical Indicators: 09/27 Attending Progress Note: "Acute on chronic CHF exacerbation-on Lasix drip this morning, changed to IV Lasix bolus today." 09/26 Cardiology Consult: "congestive heart failure, BNP 59,000, anasarca." VS/Pulse OX: Temp 98.3, HR 116, RR 18, B/P 112/80, Spo2 100% RA 08/29 BNP: 37120 09/26 Echocardiogram Results: EF 25-30%. LV is severely enlarged. LA is severely dilated, severe aortic valve sclerosis 09/27 Chest X Ray: "Improving infiltrate at the right base.Residual may remain.Follow-up can be performed as clinically indicated." Treatment: 09/25 Lasix 40 mg IVP q12 hrs 09/25 Laisx Gtt 10 ml.hr 09/27 Lasix 40 mg IVP Q 8 hrs 09/28 Laisx 60 mg PO BID 09/27 A;ldactone 25 mg Po QD Toprol XL 25 mg Po BID 500 CC IV bolus In your professional opinion, can you please clarify the acuity and type of CHF if known? Systolic Heart Failure: Acute Chronic Acute on Chronic Systolic & Diastolic Heart Failure: Acute Chronic Acute on Chronic Heart Failure Unable to Determine Other, please specify (Last Revision: February 2018) MTDD
--- NOTE | 2020-09-28 13:42 | P.PN ---
Subjective Progress Note Date: 09/28/20 HISTORY OF PRESENT ILLNESS: Patient examined this morning at the bedside. She denies chest pain or pressure. Denies shortness of breath. Vital signs are stable. She remains on IV Lasix. Creatinine 1.49 today. Fluid balance over the last 24 hours is -600 mL. Echocardiogram completed revealed ejection fraction between 25 and 30%, moderate to severe mitral regurgitation, moderate to severe tricuspid regurgitation, and moderate to severe pulmonary hypertension. PHYSICAL EXAM: VITAL SIGNS: Reviewed. GENERAL: Well-developed in no acute distress. NECK: Supple. No JVD or thyromegaly LUNGS: Respirations even and unlabored. Lungs diminished. HEART: Telemetry reveals paced rhythm. Regular rate and rhythm. S1 and S2 heard. EXTREMITIES: Normal range of motion. No clubbing or cyanosis. Peripheral pulses intact. 1+ bilateral lower extremity edema ASSESSMENT: Acute exacerbation of chronic systolic congestive heart failure, EF 25-30% History of coronary artery disease with previous CABG, 2004 History of chronic persistent atrial fibrillation on anticoagulation with Eliquis History of permanent pacemaker insertion Chronic kidney disease Hypertension Hyperlipidemia PLAN: Transition patient to oral Lasix: 60 mg twice a day Monitor kidney function Daily weights Accurate I&O Nurse practitioner note has been reviewed by physician. Signing provider agrees with the documented findings, assessment, and plan of care. Objective - Vital Signs Vital signs: Vital Signs Temp 98.4 F 09/27/20 16:00 Pulse 90 09/28/20 08:00 Resp 16 09/28/20 08:00 BP 113/55 09/28/20 08:00 Pulse Ox 100 09/28/20 08:00 Intake & Output 09/27/20 09/28/20 09/28/20 18:59 06:59 18:59 Intake Total 220 240 Output Total 810 Balance 220 -810 240 Weight 67.5 kg Intake: Oral 220 240 Output: Urine 810 Other: Voiding Method Bedpan Bedpan Bedpan # Voids 1 # Bowel Movements 1 - Labs CBC & Chem 7: 09/25/20 01:18 09/28/20 08:05 Labs: Abnormal Lab Results - Last 24 Hours (Table) 09/27/20 09/27/20 09/28/20 Range/Units 16:58 20:11 08:05 BUN 66 H (7-17) mg/dL Creatinine 1.49 H (0.52-1.04) mg/dL Glucose 122 H (74-99) mg/dL POC Glucose (mg/dL) 156 H 177 H (75-99) mg/dL Calcium 8.2 L (8.4-10.2) mg/dL 09/28/20 Range/Units 11:35 BUN (7-17) mg/dL Creatinine (0.52-1.04) mg/dL Glucose (74-99) mg/dL POC Glucose (mg/dL) 135 H (75-99) mg/dL Calcium (8.4-10.2) mg/dL
[2020-09-28 17:08] LABS: Glucose,Whole Blood 137 mg/dL (75-99)
[2020-09-28] MEDS: FUROSEMIDE 20 MG TAB PO SCH (18:24)
--- NOTE | 2020-09-28 19:28 | P.PN ---
Progress Note - Text Progress Note Date: 09/28/20 Chief Complaint: Short of breath History of presenting complaint: This is a pleasant 89-year-old patient follows with Dr. Viral De La Cruz. Chronic stable medical conditions include diabetes mellitus, hypertension, hyperlipidemia, memory impairment, osteoarthritis, peripheral neuropathy incontinent of urine does use a walker. Coronary artery disease. History is obtained by the son and at the bedside. Patient has been progressively getting short of breath QUITE some time. Yesterday became increasingly so. No cough. No fever no chills. Appetite is okay. Patient also got lower extremity edema. Patient sometimes bumps on legs and falls and has got some cellulitis of the lower extremity. Patient has symptoms other forgetful and unable to give much of a history that can also simple questions. Denies any obvious pain. No wheezing. Patient is also had weight loss. Admitted with-CHF exacerbation, put on Lasix drip. Also bilateral lower extremity cellulitis with local trauma from falls. Put on Silvadene cream and IV Ancef. Today-breathing improved. Eating better. Sitting up in bed. More cheerful Review of systems: Was done for constitutional, cardiovascular, GI, pulmonary. relevant finding as above Active Medications Acetaminophen (Acetaminophen Tab 325 Mg Tab) 650 mg PO Q6HR PRN PRN Reason: Mild Pain or Fever > 100.5 Last Admin: 09/28/20 03:49 Dose: 650 mg Documented by: Al Hydroxide/Mg Hydroxide (Mag Hydrox/Al Hydrox/Simeth 30 Ml Cup) 15 ml PO Q6HR PRN PRN Reason: Indigestion Allopurinol (Allopurinol 100 Mg Tab) 100 mg PO DAILY [facility] Last Admin: 09/28/20 09:24 Dose: 100 mg Documented by: Apixaban (Apixaban 2.5 Mg Tablet) 2.5 mg PO BID [facility] Last Admin: 09/28/20 09:24 Dose: 2.5 mg Documented by: Atorvastatin Calcium (Atorvastatin 40 Mg Tab) 40 mg PO HS [facility] Last Admin: 09/27/20 21:22 Dose: 40 mg Documented by: Calamine (Calamine/Zinc Oxide Lotion 177 Ml Btl) 1 applic TOPICAL TID PRN PRN Reason: Skin Irritation Calcium Carbonate/Glycine (Calcium Carbonate 500 Mg Chewable) 1,000 mg PO Q4HR PRN PRN Reason: Dyspepsia Diphenhydramine HCl (Diphenhydramine Elixir 25 Mg/10 Ml Cup) 12.5 mg PO Q6H PRN PRN Reason: Itching Last Admin: 09/28/20 00:09 Dose: 12.5 mg Documented by: Ferrous Sulfate (Ferrous Sulfate 325 Mg Tab) 325 mg PO DAILY [facility] Last Admin: 09/28/20 09:24 Dose: 325 mg Documented by: Furosemide (Furosemide 20 Mg Tab) 60 mg PO BID@0900,1600 [facility] Last Admin: 09/28/20 18:24 Dose: 60 mg Documented by: Cefazolin Sodium 1,000 mg/ (Sodium Chloride) 50 mls @ 100 mls/hr IVPB Q12HR [facility] Last Admin: 09/28/20 09:24 Dose: 100 mls/hr Documented by: Insulin Aspart (Insulin Aspart (Novolog) 100 Unit/Ml Vial) 0 unit SQ ACHS [facility]; Protocol Last Admin: 09/28/20 18:07 Dose: Not Given Documented by: Lactulose (Lactulose 20 Gm/30 Ml Cup) 20 gm PO DAILY PRN PRN Reason: Constipation Magnesium Hydroxide (Magnesium Hydroxide 2,400 Mg/10 Ml Cup) 2,400 mg PO DAILY PRN PRN Reason: Constipation Melatonin (Melatonin 3 Mg Tablet) 3 mg PO HS PRN PRN Reason: Insomnia Last Admin: 09/27/20 22:05 Dose: 3 mg Documented by: Metoprolol Succinate (Metoprolol Succinate (Er) 25 Mg Tab.Er.24h) 25 mg PO BID [facility] Last Admin: 09/28/20 09:24 Dose: 25 mg Documented by: Naloxone HCl (Naloxone 0.4 Mg/Ml 1 Ml Vial) 0.2 mg IV Q2M PRN PRN Reason: Opioid Reversal Nitroglycerin (Nitroglycerin Sl Tabs 0.4 Mg Tab) 0.4 mg SUBLINGUAL Q5M PRN PRN Reason: Chest Pain Ondansetron HCl (Ondansetron 4 Mg/2 Ml Vial) 4 mg IVP Q8HR PRN PRN Reason: Nausea And Vomiting Last Admin: 09/27/20 23:09 Dose: 4 mg Documented by: Prochlorperazine Maleate (Prochlorperazine 5 Mg Tab) 5 mg PO Q8HR PRN PRN Reason: Nausea And Vomiting Silver Sulfadiazine (Silver Sulfadiazine 1% Cream 25 Gm Tube) 1 applic TOPICAL BID [facility] Last Admin: 09/28/20 18:09 Dose: Not Given Documented by: Spironolactone (Spironolactone 25 Mg Tab) 25 mg PO DAILY [facility] Last Admin: 09/28/20 09:24 Dose: 25 mg Documented by: Physical examination: VITAL SIGNS: Afebrile, 88, 16, 104/55, 92% room air GENERAL: Propped up in bed, more perked up EYES: Pupils equal. Conjunctiva normal. NECK: JVD raised; masses not palpable. HEART: First and second heart sounds are normal; edema present. LUNGS: Respiratory rate increased; decreased breath sounds. ABDOMEN: Soft, nontender, liver spleen not palpable, no masses palpable. PSYCH: Only can tell her name, does not know where she is otherwise she is herel. DERMATOLOGICAL: Bruno wrap of the lower extremity INVESTIGATIONS, reviewed in the clinical context: Potassium 3.6 bun 66 creatinine 1.49 Previous testing White count 7.4 hemoglobin 10.8 platelets 128 potassium 5.2.71 and creatinine 1.99 Troponin I 0.035 ProBNP 59,000 EKG tracing personally reviewed by me-pacemaker rhythm Computed tomography scan of the chest abdomen pelvis-nonspecific Chest x-ray film personally reviewed by me-cardiomegaly, venous prominence, elevated right diaphragm Previous testing: Creatinine 1.17 on 10/01/2018 Assessment: -Acute on chronic CHF initially Lasix drip-improving -Bilateral lower extremity cellulitis secondary to local trauma from falls -Diabetes mellitus type 2 -Hyperlipidemia -Essential hypertension -Advance cognitive impairment from late onset Alzheimer's dementia -Primary osteoarthritis -Hypothyroid -Diabetic peripheral neuropathy -Chronic urinary incontinence -Acute kidney injury, likely cardiorenal syndrome -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 Changed to by mouth Lasix. Watch another 24 hours. Repeat labs. Hopefully discharged to [facility] tomorrow.
[2020-09-28 20:11] LABS: Glucose,Whole Blood 273 mg/dL (75-99)
[2020-09-28] MEDS: ATORVASTATIN 40 MG TAB PO SCH (21:16)
[2020-09-29 06:15] LABS: Glucose,Whole Blood 119 mg/dL (75-99)
[2020-09-29] MEDS: INSULIN ASPART (NovoLOG) 100 UNIT/ML VIAL SQ SCH ×4 (07:06→20:33)
[2020-09-29 07:47] LABS: Anisocytosis Slight; HCT 34.5 % (34.0-46.0); HGB 10.1 gm/dL (11.4-16.0); Hypochromasia Marked; MCH 29.4 pg (25.0-35.0); MCHC 29.3 g/dL (31.0-37.0); MCV 100.3 fL (80.0-100.0); Macrocytosis Slight; Mean Platelet Volume 9.3; Platelet Count 148 k/uL (150-450); RBC 3.44 m/uL (3.80-5.40); RDW 17.3 % (11.5-15.5); WBC 6.1 k/uL (3.8-10.6)
[2020-09-29 08:07] LABS: Potassium 3.7 mmol/L (3.5-5.1)
[2020-09-29 08:08] LABS: Calcium 8.4 mg/dL (8.4-10.2)
[2020-09-29] MEDS: APIXABAN 2.5 MG TABLET PO SCH ×2 (08:39→20:36)
[2020-09-29] MEDS: SPIRONOLACTONE 25 MG TAB PO SCH (08:39)
[2020-09-29] MEDS: allopurinoL 100 MG TAB PO SCH (08:39)
[2020-09-29] MEDS: FERROUS SULFATE 325 MG TAB PO SCH (08:39)
[2020-09-29] MEDS: METOPROLOL SUCCINATE (ER) 25 MG TAB.ER.24H PO SCH ×3 (08:39→20:36)
[2020-09-29] MEDS: FUROSEMIDE 20 MG TAB PO SCH ×2 (08:39→17:06)
[2020-09-29] MEDS: POTASSIUM CHLORIDE ER 20 MEQ TAB.ER PO SCH (08:50)
[2020-09-29 11:56] LABS: Glucose,Whole Blood 119 mg/dL (75-99)
--- NOTE | 2020-09-29 12:08 | P.PN ---
Subjective Progress Note Date: 09/29/20 This is a pleasant 89-year-old female with documented history of ischemic cardiomyopathy, paroxysmal atrial fibrillation, coronary artery disease with prior bypass surgery, aortic stenosis,diabetes, hypertension, hyperlipidemia,mild dementia,hypothyroidism,who initially presented to the hospital with symptoms of shortness of breath which have been progressively worsening over the past one month or so. Patient was seen in consultation by Dr. Sylvester, and had been initiated on a Lasix drip.on admission, patient was also noted to have runs of nonsustained ventricular tachycardia which have been persisting since then, however lessening somewhat in frequency. Patient had an echocardiogram with Doppler study performedwhich showed an ejection fraction of 25-30%, no evidence of any aortic stenosis, moderate to severe mitral regurg and moderate to severe tricuspid regurg and moderate to severe pulmonary hypertension noted. patient was seen and examined this morning, had no complaints overall, states that she is feeling significantly better than she had a couple of days before.she is currently on oral diuretics, she is on anticoagulation in the form of Eliquis 2-1/2 mg one tablet by mouth twice a day.her laboratory data from today, white blood cell count 6.1, hemoglobin 10.1, platelet count 148. Sodium 138, potassium 3.7, BUN 67 and creatinine 1.4. Magnesium 2.1. Objective - Vital Signs Vital signs: Vital Signs Temp 98.7 F 09/28/20 20:00 Pulse 97 09/29/20 08:00 Resp 16 09/29/20 11:30 BP 96/52 09/29/20 08:00 Pulse Ox 93 L 09/29/20 08:00 Intake & Output 09/28/20 09/29/20 09/29/20 18:59 06:59 18:59 Intake Total 720 240 Balance 720 240 Weight 67 kg Intake: Oral 720 240 Other: Voiding Method Bedpan Bedpan Bedpan - Exam PHYSICAL EXAMINATION: GENERAL:89-year-old female in no acute distress at the time of my examination HEENT: Head is atraumatic, normocephalic. Pupils equal, round. Sclera anicteric. Conjunctiva are clear. Mucous membranes of the mouth are moist. Neck is supple. There is no elevated jugular venous pressure.no carotid bruit is heard. HEART EXAMINATION: [Heart S1, S2 systolic murmur is heard. No murmur or gallop heard.] CHEST EXAMINATION:[ Lungs are clear to auscultation and precussion. No chest wall tenderness is noted on palpation or with deep breathing.] ABDOMEN: [ Soft, nontender. Bowel sounds are heard. No organomegaly noted]. EXTREMITIES:[ 2+ peripheral pulses with trace evidence of peripheral edema and no calf tenderness noted]. NEUROLOGIC [patient is awake, alert and oriented 3 . - Labs CBC & Chem 7: 09/29/20 06:54 09/29/20 06:54 Labs: Abnormal Lab Results - Last 24 Hours (Table) 09/28/20 09/28/20 09/29/20 Range/Units 17:03 20:10 06:13 RBC (3.80-5.40) m/uL Hgb (11.4-16.0) gm/dL MCV (80.0-100.0) fL MCHC (31.0-37.0) g/dL RDW (11.5-15.5) % Plt Count (150-450) k/uL BUN (7-17) mg/dL Creatinine (0.52-1.04) mg/dL POC Glucose (mg/dL) 137 H 273 H 119 H (75-99) mg/dL 09/29/20 09/29/20 09/29/20 Range/Units 06:54 06:54 11:55 RBC 3.44 L (3.80-5.40) m/uL Hgb 10.1 L (11.4-16.0) gm/dL MCV 100.3 H (80.0-100.0) fL MCHC 29.3 L (31.0-37.0) g/dL RDW 17.3 H (11.5-15.5) % Plt Count 148 L (150-450) k/uL BUN 67 H (7-17) mg/dL Creatinine 1.46 H (0.52-1.04) mg/dL POC Glucose (mg/dL) 119 H (75-99) mg/dL Assessment and Plan Plan: Assessment and plan #1 systolic congestive heart failure acute on chronic #2 runs of nonsustained ventricular tachycardia #3 history of coronary artery disease with prior bypass surgery in 2004 #4chronic persistent atrial fibrillation, anticoagulated with Eliquis #5 history of prior pacemaker implantation #6 acute on chronic kidney disease #7 hypertension #8 hyperlipidemia Plan We will replace the patient's potassium today, we will also increase her dose of beta nickolas to a 3 times a day dose. DNP note has been reviewed, I agree with a documented findings and plan of care. Patient was seen and examined.
[2020-09-29 13:21] VITALS: BMI 24.5
--- NOTE | 2020-09-29 16:32 | XR ---
EXAMINATION TYPE: XR chest 2V DATE OF EXAM: 09/29/2020 COMPARISON: Prior chest x-ray 09/27/2020, CT 09/25/2020 HISTORY: Follow-up congestive heart failure TECHNIQUE: Frontal and lateral views of the chest are obtained. FINDINGS: There is no focal air space opacity, no pneumothorax seen. Blunting of the posterior costo phrenic angle on the lateral exam is consistent with pleural effusion. The cardiac silhouette size is stable, right hemidiaphragm remains elevated. Patient is status post TAVR procedure and median sternotomy. The osseous structures are intact. IMPRESSION: Small left pleural effusion. Elevated right hemidiaphragm. Some probable basilar atelect asis. Borderline heart size.
[2020-09-29 16:49] LABS: Glucose,Whole Blood 126 mg/dL (75-99)
[2020-09-29 17:28] VITALS: TEMP 97.1
[2020-09-29 20:17] LABS: Glucose,Whole Blood 111 mg/dL (75-99)
[2020-09-29] MEDS: ATORVASTATIN 40 MG TAB PO SCH (20:37)
[2020-09-29] MEDS: diphenhydrAMINE ELIXIR 25 MG/10 ML CUP PO PRN (21:22)
--- NOTE | 2020-09-29 23:52 | P.PN ---
Progress Note - Text Progress Note Date: 09/29/20 Chief Complaint: Short of breath History of presenting complaint: This is a pleasant 89-year-old patient follows with Dr. Viral De La Cruz. Chronic stable medical conditions include diabetes mellitus, hypertension, hyperlipidemia, memory impairment, osteoarthritis, peripheral neuropathy incontinent of urine does use a walker. Coronary artery disease. History is obtained by the son and at the bedside. Patient has been progressively getting short of breath QUITE some time. Yesterday became increasingly so. No cough. No fever no chills. Appetite is okay. Patient also got lower extremity edema. Patient sometimes bumps on legs and falls and has got some cellulitis of the lower extremity. Patient has symptoms other forgetful and unable to give much of a history that can also simple questions. Denies any obvious pain. No wheezing. Patient is also had weight loss. Admitted with-CHF exacerbation, put on Lasix drip. Also bilateral lower extremity cellulitis with local trauma from falls. Put on Silvadene cream and IV Ancef. Today-breathing improved. Eating better. More comfortable. Review of systems: Was done for constitutional, cardiovascular, GI, pulmonary. relevant finding as above Active Medications Acetaminophen (Acetaminophen Tab 325 Mg Tab) 650 mg PO Q6HR PRN PRN Reason: Mild Pain or Fever > 100.5 Last Admin: 09/28/20 03:49 Dose: 650 mg Documented by: Al Hydroxide/Mg Hydroxide (Mag Hydrox/Al Hydrox/Simeth 30 Ml Cup) 15 ml PO Q6HR PRN PRN Reason: Indigestion Allopurinol (Allopurinol 100 Mg Tab) 100 mg PO DAILY [facility] Last Admin: 09/29/20 08:39 Dose: 100 mg Documented by: Apixaban (Apixaban 2.5 Mg Tablet) 2.5 mg PO BID [facility] Last Admin: 09/29/20 20:36 Dose: 2.5 mg Documented by: Atorvastatin Calcium (Atorvastatin 40 Mg Tab) 40 mg PO HS [facility] Last Admin: 09/29/20 20:37 Dose: 40 mg Documented by: Calamine (Calamine/Zinc Oxide Lotion 177 Ml Btl) 1 applic TOPICAL TID PRN PRN Reason: Skin Irritation Calcium Carbonate/Glycine (Calcium Carbonate 500 Mg Chewable) 1,000 mg PO Q4HR PRN PRN Reason: Dyspepsia Diphenhydramine HCl (Diphenhydramine Elixir 25 Mg/10 Ml Cup) 12.5 mg PO Q6H PRN PRN Reason: Itching Last Admin: 09/29/20 21:22 Dose: 12.5 mg Documented by: Ferrous Sulfate (Ferrous Sulfate 325 Mg Tab) 325 mg PO DAILY [facility] Last Admin: 09/29/20 08:39 Dose: 325 mg Documented by: Furosemide (Furosemide 20 Mg Tab) 60 mg PO BID@0900,1600 [facility] Last Admin: 09/29/20 17:06 Dose: 60 mg Documented by: Cefazolin Sodium 1,000 mg/ (Sodium Chloride) 50 mls @ 100 mls/hr IVPB Q12HR [facility] Last Admin: 09/29/20 20:37 Dose: 100 mls/hr Documented by: Insulin Aspart (Insulin Aspart (Novolog) 100 Unit/Ml Vial) 0 unit SQ ACHS [facility]; Protocol Last Admin: 09/29/20 20:33 Dose: Not Given Documented by: Lactulose (Lactulose 20 Gm/30 Ml Cup) 20 gm PO DAILY PRN PRN Reason: Constipation Magnesium Hydroxide (Magnesium Hydroxide 2,400 Mg/10 Ml Cup) 2,400 mg PO DAILY PRN PRN Reason: Constipation Melatonin (Melatonin 3 Mg Tablet) 3 mg PO HS PRN PRN Reason: Insomnia Last Admin: 09/27/20 22:05 Dose: 3 mg Documented by: Metoprolol Succinate (Metoprolol Succinate (Er) 25 Mg Tab.Er.24h) 25 mg PO TID [facility] Last Admin: 09/29/20 20:36 Dose: 25 mg Documented by: Naloxone HCl (Naloxone 0.4 Mg/Ml 1 Ml Vial) 0.2 mg IV Q2M PRN PRN Reason: Opioid Reversal Nitroglycerin (Nitroglycerin Sl Tabs 0.4 Mg Tab) 0.4 mg SUBLINGUAL Q5M PRN PRN Reason: Chest Pain Ondansetron HCl (Ondansetron 4 Mg/2 Ml Vial) 4 mg IVP Q8HR PRN PRN Reason: Nausea And Vomiting Last Admin: 09/27/20 23:09 Dose: 4 mg Documented by: Prochlorperazine Maleate (Prochlorperazine 5 Mg Tab) 5 mg PO Q8HR PRN PRN Reason: Nausea And Vomiting Silver Sulfadiazine (Silver Sulfadiazine 1% Cream 25 Gm Tube) 1 applic TOPICAL BID [facility] Last Admin: 09/29/20 20:37 Dose: 1 applic Documented by: Spironolactone (Spironolactone 25 Mg Tab) 25 mg PO DAILY [facility] Last Admin: 09/29/20 08:39 Dose: 25 mg Documented by: Physical examination: VITAL SIGNS: 97.1, 87, 16, 130 59, 96% room air GENERAL: Propped up in bed, breathing better EYES: Pupils equal. Conjunctiva normal. NECK: JVD raised; masses not palpable. HEART: First and second heart sounds are normal; edema present. LUNGS: Respiratory rate increased; decreased breath sounds. ABDOMEN: Soft, nontender, liver spleen not palpable, no masses palpable. PSYCH: Only can tell her name, does not know where she is otherwise she is herel. DERMATOLOGICAL: Decreased redness of lower extremity. INVESTIGATIONS, reviewed in the clinical context: White count 6.1 hemoglobin 10.1 creatinine 1.46 bun 67 Previous testing White count 7.4 hemoglobin 10.8 platelets 128 potassium 5.2.71 and creatinine 1.99 Troponin I 0.035 ProBNP 59,000 EKG tracing personally reviewed by me-pacemaker rhythm Computed tomography scan of the chest abdomen pelvis-nonspecific Chest x-ray film personally reviewed by me-cardiomegaly, venous prominence, elevated right diaphragm Previous testing: Creatinine 1.17 on 10/01/2018 Assessment: -Acute on chronic CHF initially Lasix much improved -Bilateral lower extremity cellulitis secondary to local trauma from falls- improving -Diabetes mellitus type 2 -Hyperlipidemia -Essential hypertension -Advance cognitive impairment from late onset Alzheimer's dementia -Primary osteoarthritis -Hypothyroid -Diabetic peripheral neuropathy -Chronic urinary incontinence -Acute kidney injury, likely cardiorenal syndrome -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 Patient needs 2 more nights. Continue with by mouth Lasix and IV Ancef. Changed to Keflex tomorrow.
[2020-09-30 03:54] VITALS: RESP 16
[2020-09-30 06:20] LABS: Glucose,Whole Blood 119 mg/dL (75-99)
[2020-09-30] MEDS: INSULIN ASPART (NovoLOG) 100 UNIT/ML VIAL SQ SCH ×2 (06:22→12:37)
[2020-09-30] MEDS ORDERED: CEPHALEXIN 500 MG CAP PO SCH (09:00)
[2020-09-30] MEDS: SPIRONOLACTONE 25 MG TAB PO SCH (09:04)
[2020-09-30] MEDS: METOPROLOL SUCCINATE (ER) 25 MG TAB.ER.24H PO SCH (09:05)
[2020-09-30] MEDS: allopurinoL 100 MG TAB PO SCH (09:05)
[2020-09-30] MEDS: APIXABAN 2.5 MG TABLET PO SCH (09:05)
[2020-09-30] MEDS: FUROSEMIDE 20 MG TAB PO SCH (09:05)
[2020-09-30] MEDS: FERROUS SULFATE 325 MG TAB PO SCH (09:05)
[2020-09-30 09:08] VITALS: BP 119/66; PULSE 85
[2020-09-30] MEDS: ACETAMINOPHEN TAB 325 MG TAB PO PRN (10:29)
--- NOTE | 2020-09-30 12:02 | P.PN ---
Subjective Progress Note Date: 09/30/20 This is a pleasant 89-year-old female with documented history of ischemic cardiomyopathy, paroxysmal atrial fibrillation, coronary artery disease with prior bypass surgery, aortic stenosis,diabetes, hypertension, hyperlipidemia,mild dementia,hypothyroidism,who initially presented to the hospital with symptoms of shortness of breath which have been progressively worsening over the past one month or so. Patient was seen in consultation by Dr. Sylvester, and had been initiated on a Lasix drip.on admission, patient was also noted to have runs of nonsustained ventricular tachycardia which have been persisting since then, however lessening somewhat in frequency. Patient had an echocardiogram with Doppler study performedwhich showed an ejection fraction of 25-30%, no evidence of any aortic stenosis, moderate to severe mitral regurg and moderate to severe tricuspid regurg and moderate to severe pulmonary hypertension noted. patient was seen and examined this morning, had no complaints overall, states that she is feeling significantly better than she had a couple of days before.she is currently on oral diuretics, she is on anticoagulation in the form of Eliquis 2-1/2 mg one tablet by mouth twice a day.her laboratory data from today, white blood cell count 6.1, hemoglobin 10.1, platelet count 148. Sodium 138, potassium 3.7, BUN 67 and creatinine 1.4. Magnesium 2.1. 09/30/2020 Patient was seen and examined this morning, she is having less evidence of ventricular arrhythmia noted on the monitor. Her chest x-ray today showed a small left-sided pleural effusion, blood pressure 110/70 with a heart rate of 108, 94% oxygen saturation. No laboratory data today. Objective - Vital Signs Vital signs: Vital Signs Temp 97.1 F L 09/29/20 19:26 Pulse 85 09/30/20 08:00 Resp 16 09/30/20 08:00 BP 119/66 09/30/20 08:00 Pulse Ox 96 09/30/20 08:00 Intake & Output 09/29/20 09/30/20 09/30/20 18:59 06:59 18:59 Intake Total 480 240 Output Total 800 Balance 480 -800 240 Weight 67 kg 85.9 kg Intake: Oral 480 240 Output: Urine 800 Other: Voiding Method Bedpan Bedpan - Exam PHYSICAL EXAMINATION: GENERAL:89-year-old female in no acute distress at the time of my examination HEENT: Head is atraumatic, normocephalic. Pupils equal, round. Sclera anicteric. Conjunctiva are clear. Mucous membranes of the mouth are moist. Neck is supple. There is no elevated jugular venous pressure.no carotid bruit is heard. HEART EXAMINATION: [Heart S1, S2 systolic murmur is heard. No murmur or gallop heard.] CHEST EXAMINATION:[ Lungs are clear to auscultation and precussion. No chest wall tenderness is noted on palpation or with deep breathing.] ABDOMEN: [ Soft, nontender. Bowel sounds are heard. No organomegaly noted]. EXTREMITIES:[ 2+ peripheral pulses with trace evidence of peripheral edema and no calf tenderness noted]. NEUROLOGIC [patient is awake, alert and oriented 3 . 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 Increase activity as tolerated today. DNP note has been reviewed, I agree with a documented findings and plan of care. Patient was seen and examined.
[2020-09-30 12:43] LABS: Glucose,Whole Blood 196 mg/dL (75-99)
--- NOTE | 2020-09-30 13:47 | P.DS ---
Providers Date of admission: 09/28/20 09:31 Expected date of discharge: 09/30/20 Attending physician: Tanmay Marquez Consults: 09/25/20 04:40 Consult Physician Routine Consulting Provider: Bonita Martínez Consult Reason/Comments: pvc Do you want consulting provider notified?: Yes Primary care physician: Sb Stratton [facility] Course: Chief Complaint: Short of breath History of presenting complaint: This is a pleasant 89-year-old patient follows with Dr. Viral De La Cruz. Chronic stable medical conditions include diabetes mellitus, hypertension, hyperlipidemia, memory impairment, osteoarthritis, peripheral neuropathy incontinent of urine does use a walker. Coronary artery disease. History is obtained by the son and at the bedside. Patient has been progressively getting short of breath QUITE some time. Yesterday became increasingly so. No cough. No fever no chills. Appetite is okay. Patient also got lower extremity edema. Patient sometimes bumps on legs and falls and has got some cellulitis of the lower extremity. Patient has symptoms other forgetful and unable to give much of a history that can also simple questions. Denies any obvious pain. No wheezing. Patient is also had weight loss. Admitted with-CHF systolic exacerbation, put on Lasix drip. Also bilateral lower extremity cellulitis with local trauma from falls. Put on Silvadene cream and IV Ancef. Patient's cardiac status greatly improved. Today-breathing better. Eating better. No extremity cellulitis clinically improved. Given her age and comorbidities prognosis guarded. Consultation: [facility] Physical examination: VITAL SIGNS: Afebrile, 85, 16, 119/66, 96% room air GENERAL: Sitting up to chair, breathing better EYES: Pupils equal. Conjunctiva normal. NECK: JVD raised; masses not palpable. HEART: First and second heart sounds are normal; edema present. LUNGS: Respiratory rate increased; decreased breath sounds. ABDOMEN: Soft, nontender, liver spleen not palpable, no masses palpable. PSYCH: Only can tell her name, does not know where she is otherwise she is herel. DERMATOLOGICAL: Decreased redness of lower extremity. INVESTIGATIONS, reviewed in the clinical context: White count 6.1 hemoglobin 10.1 creatinine 1.46 bun 67 Previous testing White count 7.4 hemoglobin 10.8 platelets 128 potassium 5.2.71 and creatinine 1.99 Troponin I 0.035 ProBNP 59,000 EKG tracing personally reviewed by me-pacemaker rhythm Computed tomography scan of the chest abdomen pelvis-nonspecific Chest x-ray film personally reviewed by me-cardiomegaly, venous prominence, elevated right diaphragm 2-D echocardiogram-moderate global hypokinesis with LV. EF 25-30%. Moderate to severe mitral regurgitation, moderate to severe tricuspid regurgitation, moderate to severe pulmonary hypertension. Previous testing: Creatinine 1.17 on 10/01/2018 Assessment: -Acute on chronic systolic EF 25-30% CHF , POA -Bilateral lower extremity cellulitis secondary to local trauma from POA -Moderate to severe mitral regurgitation, moderate to severe tricuspid regurgitation, nonrheumatic Moderate to severe secondary pulmonary hypertension secondary to CHF -Diabetes mellitus type 2 -Hyperlipidemia -Essential hypertension -Advance cognitive impairment from late onset Alzheimer's dementia -Primary osteoarthritis -Hypothyroid -Diabetic peripheral neuropathy -Chronic urinary incontinence -Acute kidney injury, ATN likely cardiorenal syndrome -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 -Normocytic anemia likely from chronic kidney disease -DO NOT RESUSCITATE Disposition: [facility] Labs: BMP-5 days Patient Condition at Discharge: Undetermined Plan - Discharge Summary Discharge Rx Participant: No New Discharge Prescriptions: New Spironolactone [Aldactone] 25 mg PO DAILY tab Lactulose [Cephulac] 20 gm PO DAILY PRN ml PRN Reason: Constipation Cephalexin [Keflex] 500 mg PO TID #21 cap Melatonin 3 mg PO HS PRN tablet PRN Reason: Insomnia SILVER sulfADIAZINE CREAM [Silvadene Cream] 1 applic TOPICAL BID applic Acetaminophen Tab [Tylenol] 650 mg PO Q6HR PRN tab PRN Reason: Mild Pain Or Fever > 100.5 Continue Atorvastatin [Lipitor] 40 mg PO HS Nitroglycerin Sl Tabs [Nitrostat] 0.4 mg SUBLINGUAL Q5M PRN #25 tab PRN Reason: Chest Pain Apixaban [Eliquis] 2.5 mg PO BID allopurinoL [Zyloprim] 100 mg PO DAILY Potassium Chloride ER [K-Dur 20] 20 meq PO DAILY Ferrous Sulfate [Iron (65 MG Elemental)] 325 mg PO DAILY Metoprolol Succinate [Toprol XL] 25 mg PO BID Changed Furosemide [Lasix] 40 mg PO BID #0 Discontinued Digoxin [Digitek] 62.5 mcg PO DAILY metFORMIN HCL [Glucophage] 500 mg PO DAILY Discharge Medication List Atorvastatin [Lipitor] 40 mg PO HS 11/04/16 [History] Nitroglycerin Sl Tabs [Nitrostat] 0.4 mg SUBLINGUAL Q5M PRN #25 tab 11/09/16 [Rx] Apixaban [Eliquis] 2.5 mg PO BID 09/28/18 [History] Ferrous Sulfate [Iron (65 MG Elemental)] 325 mg PO DAILY 09/28/18 [History] Potassium Chloride ER [K-Dur 20] 20 meq PO DAILY 09/28/18 [History] allopurinoL [Zyloprim] 100 mg PO DAILY 09/28/18 [History] Metoprolol Succinate [Toprol XL] 25 mg PO BID 09/25/20 [History] Acetaminophen Tab [Tylenol] 650 mg PO Q6HR PRN tab 09/30/20 [Rx] Cephalexin [Keflex] 500 mg PO TID #21 cap 09/30/20 [Rx] Furosemide [Lasix] 40 mg PO BID #0 09/30/20 [Rx] Lactulose [Cephulac] 20 gm PO DAILY PRN ml 09/30/20 [Rx] Melatonin 3 mg PO HS PRN tablet 09/30/20 [Rx] SILVER sulfADIAZINE CREAM [Silvadene Cream] 1 applic TOPICAL BID applic 09/30/20 [Rx] Spironolactone [Aldactone] 25 mg PO DAILY tab 09/30/20 [Rx] Follow up Appointment(s)/Referral(s): cardiology, [Other] - 1 Week Sb Patrick DO [Primary Care Provider] - 1-2 days Activity/Diet/Wound Care/Special Instructions: bmp - 3 days
[2020-09-30 14:45] LABS: Calcium 8.7 mg/dL (8.4-10.2); Potassium 4.8 mmol/L (3.5-5.1)
== END 2020-09-30 15:45 | DRG 291 ==
LOC: EC 00:37 → 3SCARD 04:41 → OBSVTOIN 09-28 09:31
PROVIDERS: ADMIT Hospitalist; ATTEND Hospitalist
DX: I13.0 Hypertensive heart and chronic kidney disease with heart failure and stage 1 through stage 4 chronic kidney disease, or unspecified chronic kidney disease (principal); I50.23 Acute on chronic systolic (congestive) heart failure; N17.0 Acute kidney failure with tubular necrosis; I47.2 Ventricular tachycardia; I48.19 Other persistent atrial fibrillation; L03.115 Cellulitis of right lower limb; L03.116 Cellulitis of left lower limb; D63.1 Anemia in chronic kidney disease; E03.9 Hypothyroidism, unspecified; E11.22 Type 2 diabetes mellitus with diabetic chronic kidney disease; E11.42 Type 2 diabetes mellitus with diabetic polyneuropathy; E78.5 Hyperlipidemia, unspecified; E87.6 Hypokalemia; G30.1 Alzheimer's disease with late onset; F02.80 Dementia in other diseases classified elsewhere, unspecified severity, without behavioral disturbance, psychotic disturbance, mood disturbance, and anxiety; Z87.891 Personal history of nicotine dependence; F41.9 Anxiety disorder, unspecified; I08.1 Rheumatic disorders of both mitral and tricuspid valves; I25.10 Atherosclerotic heart disease of native coronary artery without angina pectoris; I25.5 Ischemic cardiomyopathy; I27.29 Other secondary pulmonary hypertension; I49.3 Ventricular premature depolarization; M19.91 Primary osteoarthritis, unspecified site; N18.30 Chronic kidney disease, stage 3 unspecified; R32 Unspecified urinary incontinence; Z66 Do not resuscitate; Z79.01 Long term (current) use of anticoagulants; Z79.84 Long term (current) use of oral hypoglycemic drugs; Z79.899 Other long term (current) drug therapy; Z95.0 Presence of cardiac pacemaker; Z95.1 Presence of aortocoronary bypass graft; Z90.49 Acquired absence of other specified parts of digestive tract; E86.0 Dehydration; Z88.2 Allergy status to sulfonamides; M25.512 Pain in left shoulder; M25.511 Pain in right shoulder; M54.9 Dorsalgia, unspecified; Z91.81 History of falling
CPT/HCPCS: 36415; 51702; 71045; 71046; 71250; 74176; 80048; 80053; 81001; 82550; 83605; 83735; 83880; 84100; 84484; 85025; 85027; 85610; 85730; 86850; 86900; 86901; 93005; 93306; 96361; 96374; 96375; 99285